=== PATIENT | female | born 1975 | race Caucasian/White ===

== ENCOUNTER → 2017-08-01 | Outpatient (CLI) | payer OTHER ==
--- NOTE | 2017-08-01 16:12 | XR ---
Lumbar spine HISTORY: Trauma and pain 3 views of the lumbar spine Lumbar vertebral bodies show preserved height, alignment, and bone mineralization. Vacuum present at L5-S1. There is associated loss of disc height with spondylosis. IMPRESSION: Degenerative disc disease. No acute fracture or subluxation.
== END | disposition home or self-care (01) ==
LOC: RADXRMAIN 15:20
PROVIDERS: ATTEND Family Medicine
DX: M51.36 Other intervertebral disc degeneration, lumbar region (principal)
CPT/HCPCS: 72100

== ENCOUNTER → 2017-09-02 | Outpatient (CLI) | payer OTHER | END | disposition home or self-care (01) | LOC: BARWHC3 14:53 | PROVIDERS: ATTEND Surgery | DX: Z53.9 Procedure and treatment not carried out, unspecified reason (principal) ==

== ENCOUNTER → 2019-04-15 | Outpatient (CLI) | payer BC ==
--- NOTE | 2019-04-15 18:08 | US ---
EXAMINATION TYPE: US venous doppler duplex LE RT DATE OF EXAM: 04/15/2019 5:51 PM COMPARISON: NONE CLINICAL HISTORY: M79.604 Pain in right leg. Pain in right leg since knee replacement October 14, 2018. Worse x 2 days. Patient does not take blood thinners. No hx of DVT. SIDE PERFORMED: Right TECHNIQUE: The lower extremity deep venous system is examined utilizing real time linear array sonog vonda with graded compression, doppler sonography and color-flow sonography. VESSELS IMAGED: External Iliac Vein (EIV) Common Femoral Vein Deep Femoral Vein Greater Saphenous Vein * Femoral Vein Popliteal Vein Small Saphenous Vein * Proximal Calf Veins (* superficial vessels) Right Leg: There is limited visibility of right distal femoral vein. Limited color flow and compress ion images. Large body habitus. No evidence of DVT in remaining veins imaged. IMPRESSION: No evidence of deep venous thrombosis in the right leg.
== END | disposition home or self-care (01) ==
LOC: RADUSMAIN 17:08
PROVIDERS: ATTEND Family Medicine
DX: M79.604 Pain in right leg (principal)

== ENCOUNTER → 2019-05-14 | Outpatient (CLI) | payer BC ==
--- NOTE | 2019-06-03 10:12 | EM ---
EVENT MONITOR This is a 14-day monitor. INDICATION: Palpitations. Underlying rhythm is sinus. There were episodes of sinus tachycardia noted. There are no episodes of sustained ventricular or supraventricular tachyarrhythmias. There are no episodes of more than 2 second pauses. There was one short self-limited run of paroxysmal atrial fibrillation noted. CONCLUSIONS: 1. This 14-day event monitor shows sinus rhythm with episodes of sinus tachycardia. 2. There was a short self-limited run of paroxysmal atrial fibrillation noted. MMODL / IJN: [id number] /
== END | disposition home or self-care (01) ==
LOC: RADECHMAIN 11:43
PROVIDERS: ATTEND Family Medicine
DX: R00.0 Tachycardia, unspecified (principal); I48.0 Paroxysmal atrial fibrillation
CPT/HCPCS: 93270

== ENCOUNTER → 2021-10-03 | Outpatient (CLI) | payer BC, OTHER ==
--- NOTE | 2021-10-03 19:36 | MR ---
EXAMINATION TYPE: MR shoulder LT wo con DATE OF EXAM: 10/03/2021 COMPARISON: Plain film 09/26/2021 HISTORY: Left shoulder pain and limited movement for 2 weeks due to fall. TECHNIQUE: Multiplanar, multisequence imaging of the left shoulder is performed without contrast. FINDINGS: There is motion on exam. Rotator Cuff: There is some thickening of the rotator cuff with some increased intrinsic signal, rota tor cuff is intact Acromioclavicular Joint: Arthropathy changes present. Distal acromion is downturned, there is a dista l acromial spur. Glenohumeral Joint: Intact Labrum: The labrum appears grossly intact given limitation of non-arthrogram study. Biceps Tendon: The long head of biceps is in normal location within bicipital groove, fluid signal is present along the long head of biceps tendon. Bone marrow signal: Spinal stenosis suspected in the humeral head Other: Some fluid signal present in the subacromial subdeltoid bursa. Small joint effusion. IMPRESSION: Findings consistent with tendinosis, consider impingement.
== END | disposition home or self-care (01) ==
LOC: RADMRIMAIN 18:11
PROVIDERS: ATTEND Orthopaedic Surgery
DX: M25.512 Pain in left shoulder (principal)

== ENCOUNTER 2021-10-18 10:05 | Day surgery (SDC) | payer BC, OTHER ==
--- NOTE | 2021-10-16 09:19 | P.HPOR ---
History of Present Illness H&P Date: 10/16/21 Chief Complaint: Left thumb CMC arthritis Subjective: This is a 46 year old female that presents today for initial evaluation regarding a several year history of worsening bilateral thumb CMC pain. She reports pain with pinching and grasping and opening jars. She denies any injury and states the left is more symptomatic than the right side but both are limiting her activities, she likes to drive motorcycles. She denies any paresthesias and has tried anti-inflammatories, heat and ice. Physical Examination: LUE: AIN/PIN/Radial/Ulnar/Median motor intact. Radial/Ulnar/Median SILT. 2+/4 Radial/Ulnar pulses palpated. 5/5 APB, 5/5 FDI. Negative Finkelsteins, positive CMC grind, negative Durkan's compression. RUE: AIN/PIN/Radial/Ulnar/Median motor intact. Radial/Ulnar/Median SILT. 2+/4 Radial/Ulnar pulses palpated. 5/5 APB, 5/5 FDI. Negative Finkelsteins, positive CMC grind, negative Durkan's compression. Imaging: X-Rays of the left and right hand show advanced degenerative changes located at the thumb CMC joint. Impression: 1.) B/L thumb CMC arthritis Plan: Diagnosis and treatment options were discussed with the patient. She states she is tired of dealing the the pain and weakness in both thumbs and would like to proceed with surgical intervention with thumb CMC tendon transfer arthroplasty. Risks and benefit of surgery including bleeding, infection, damage to surrounding tissue, need for further surgery,residual numbness were discussed and the patient wished to go forward with surgery. PCP clearance is requested, she would like to proceed with surgery on the left side first. CC: Kain Monge DO -Jeison Sanz DO Orthopedic Hand/Upper Extremity Surgeon Past Medical History Past Medical History: Osteoarthritis (OA) Additional Past Medical History / Comment(s): VARICOSE VEINS, STATES POSSIBLE FOOD POISONING- HAD DIARRHEA FOR LAST 7 DAYS WITH SOME NAUSEA AND VOMITING. STATES NO LONGER HAVING DIARRHEA OR NAUSEA AND VOMITING , STATES TAKING CIPRO FOR UTI AND DR NICK AWARE. History of Any Multi-Drug Resistant Organisms: None Reported Past Surgical History: Hysterectomy, Joint Replacement, Orthopedic Surgery, Tubal Ligation Additional Past Surgical History / Comment(s): TOTAL RIGHT KNEE, LEFT ANKLE AND TENDON REPAIR, RIGHT ROTATOR CUFF X2. Past Anesthesia/Blood Transfusion Reactions: Motion Sickness, Postoperative Nausea & Vomiting (PONV) Past Psychological History: Anxiety, Depression, Panic Disorder Past Alcohol Use History: None Reported Past Drug Use History: None Reported - Past Family History Mother Family Medical History: No Reported History Medications and Allergies Home Medications Medication Instructions Recorded Confirmed Type ALPRAZolam [Xanax] 0.25 mg PO DAILY PRN 12/28/14 06/13/16 History Ciprofloxacin HCl [Cipro] 500 mg PO Q12HR 06/13/16 06/13/16 History Citalopram Hydrobromide [CeleXA] 20 mg PO DAILY 06/13/16 06/13/16 History Nasal [place] -Unknown Name 1 spray EA NOSTRIL DAILY 06/13/16 History ondansetron HCL [Zofran] 8 mg PO Q8HR PRN 06/13/16 06/13/16 History Allergies Allergy/AdvReac Type Severity Reaction Status Date / Time ketorolac tromethamine Allergy Nausea & Verified 06/13/16 10:24 [From Toradol] Vomiting Penicillins Allergy Swelling Verified 06/13/16 10:25 Physical Examination Osteopathic Statement: *. No significant issues noted on an osteopathic structural exam other than those noted in the History and Physical/Consult.
[2021-10-17 10:53] VITALS: BMI 48.2
[~2021-10-18 10:05] MED LIST: DEXAMETHASONE SOD PHOSPHATE 4 MG/ML 1 ML VIAL IV ONE; HYDROmorphone 0.5 MG/0.5 ML SYRINGE IVP PRN; LACTATED RINGERS 1,000 ML IV SCH; ONDANSETRON 4 MG/2 ML VIAL IVP ONE; ceFAZolin 3 GM in SODIUM CHLORIDE 0.9% 100 ML IVPB PRN
[2021-10-18 10:50] VITALS: TEMP 97
[2021-10-18] MEDS ORDERED: MIDAZOLAM 2 MG/2 ML VIAL IVP ONE ×2 (10:53→10:56)
[2021-10-18] MEDS ORDERED: fentaNYL (PF) 50 MCG/ML 2 ML AMP IVP ONE ×2 (10:53→10:56)
--- NOTE | 2021-10-18 11:13 | P.ANPRN ---
Procedure Note - Anesthesia - Nerve Block Performed Left Supraclavicular Single Time Out Performed: Yes (t) Date of Procedure: 10/18/21 Procedure Start Time: 10:52 Procedure Stop Time: 11:01 Location of Patient: PreOp Indication: Requested by Surgeon Specifically requested for management of pain by DrPato: Jeison Sanz Sedation Type: Sedate with meaningful contact maintained Preparation: Sterile Prep Position: Supine Needle Types: Pajunk Needle Gauge: 21 Ultrasound used to visualize needle placement: Yes Ultrasound used to observe medication spread: Yes Injectate: 0.5% Ropivacaine (see comment for volume) (30 ml + 4mg Dexamethason) Blood Aspirated: No Pain Paresthesia on Injection Noted: No Resistance on Injection: Normal Image Stored and Saved: Yes Events: Uneventful and Well Tolerated
[2021-10-18] MEDS ORDERED: SCOPOLAMINE 1 MG/72 HR PATCH TRANSDERM ONE (11:22)
[2021-10-18] MEDS ORDERED: PROPOFOL 10 MG/ML 20 ML VIAL IV ONE (11:44)
[2021-10-18] MEDS ORDERED: LIDOCAINE 2% INJ 20 MG/ML (2 ML VIAL) ONE (11:44)
[2021-10-18] MEDS ORDERED: ROPIVACAINE 5 MG/ML 30 ML VIAL ONE (11:44)
[2021-10-18] MEDS ORDERED: DEXAMETHASONE SOD PHOSPHATE 4 MG/ML 1 ML VIAL ONE (11:44)
[2021-10-18] MEDS ORDERED: KETAMINE 10 MG/ML 20 ML VIAL ONE (11:44)
[2021-10-18] MEDS ORDERED: MIDAZOLAM 2 MG/2 ML VIAL ONE (11:44)
[2021-10-18 13:25] VITALS: BP 136/79; PULSE 74; RESP 20
--- NOTE | 2021-10-18 18:51 | P.OP ---
Date of Procedure: 10/18/21 Preoperative Diagnosis: Left thumb CMC arthritis Postoperative Diagnosis: Left thumb CMC arthritis Procedure(s) Performed: 1.) Left thumb CMC tendon transfer arthroplasty with trapezium resection. Implants: Arthrex 3.5mm SwiveLock suture anchor x2 Anesthesia: KERI regional Surgeon: Jeison Sanz Edge Worker #1: Go Rogers Estimated Blood Loss (ml): 5 Pathology: none sent Condition: stable Disposition: PACU Description of Procedure: This is a 46 year old female who presents today for a left thumb CMC tendon transfer arthroplasty after having failed conservative treatment for severe thumb CMC arthritis. Risks and benefits of surgery were discussed with the patient including bleeding, damage to surrounding tissue, infection, need for further surgery as well as risks of anesthesia including pulmonary embolism and even and the patient wished to proceed with surgical intervention. The patients was seen in the pre-operative area by myself. Consent and H&P were completed and updated. The correct extremity was marked in the pre-operative area by myself and all other questions were answered. Patient received a upper extremity nerve block by the department of anesthesia. He then was brought to the operating room by the department of anesthesia. They remained on the portable stretcher and a rolling hand table was brought to the side of the operative extremity. The patient was then drifted off to sleep by the department of anesthesia. A nonsterile tourniquet was then applied to the operative extremity and the left upper extremity was then prepped and draped in normal sterile fashion. Pre-operative time out was performed indicating the correct patient, procedure and laterality. All in the room agreed. Pre-operative antibiotics were given prior to skin incision. The operative extremity was the exsanguinated with an esmarch bandage and the tourniquet was inflated to 250mmHg. Longitudinal incision was made over the left thumb CMC joint with a 15 blade scalpel. Blunt dissection was taken down to subcutaneous tissues with littler scissors taking care to preserve the branches of the superficial radial nerve. Dorsal radial artery was identified proximally in the incision and protected throughout the procedure. Scalpel was then made to incise the thumb CMC joint creating full thickness flaps off of the proximal metacarpal base and trapezium, this plane was further developed with a periosteal elevator. Elevator was then utilized to identify the thumb CMC joint and scaphotrapezial joint. McGlamory elevator was then used to excise the trapezium whole. Guidewire was then introduced down to the laser line at the base of the index metacarpal through the same incision and was over drilled with gold drill guide to prepare for APL graft. Another guidewire was then inserted at the radial base of the first metacarpal near the Insertion of APL and was then over drilled with normal drill guide. A 2-3mm wide slip of APL was then harvested and incised proximally and reflected distally keeping its attachment at the base of the first metacarpal. The slip of APL was captured with a 3-0 looped fiberwire suture. A 3.5mm Arthrex SwiveLock anchor was then inserted into the base of the first metacarpal. Another 3.5mm Arthrex SwiveLock anchor was inserted into the base of the second metacarpal with the thumb in slight traction and adduction while capturing the APL graft and two strands of fibertape center across the first metacarpal base to create a sling around the base suspending the thumb metacarpal, good mynor purchase was appreciated. The thumb was successfully suspended and full ROM was achieved passively. Suture and graft ends were cut and skin was closed with several interrupted 4-0 Monocryl sutures followed by a running 4-0 Monocryl stitch. Sterile dressing consisting of mastisol and steri strips followed by 4x4s cast padding, and a thumb spica plaster splint was applied. Tourniquet was let down and the hand had brisk cap refill and normal perfusion immediately. The patient was then woken by the department of anesthesia and transferred to PACU in stable condition. Go MAGDALENO was present for the case and assisted in major portions of procedure and protection of vital neurovascular structures. Jeison Sanz D.O. Orthopedic Hand/Upper Extremity Surgeon
== END 2021-10-18 13:38 | disposition home or self-care (01) ==
LOC: OR 10:05
PROVIDERS: ATTEND Orthopaedic Surgery Hand Surgery
DX: M13.842 Other specified arthritis, left hand (principal); I10 Essential (primary) hypertension; I83.90 Asymptomatic varicose veins of unspecified lower extremity; E66.01 Morbid (severe) obesity due to excess calories; Z68.42 Body mass index [BMI] 45.0-49.9, adult; K21.9 Gastro-esophageal reflux disease without esophagitis; F41.9 Anxiety disorder, unspecified; F32.A Depression, unspecified; F41.0 Panic disorder [episodic paroxysmal anxiety]; Z90.710 Acquired absence of both cervix and uterus; Z98.51 Tubal ligation status; Z96.651 Presence of right artificial knee joint; Z98.890 Other specified postprocedural states; Z79.899 Other long term (current) drug therapy; Z88.5 Allergy status to narcotic agent; Z88.0 Allergy status to penicillin
CPT/HCPCS: 64415; 76942; 25447; C1713; J2250; J1100; J0690; J2405; J3010; J2795; J2704; J2001

== ENCOUNTER → 2021-11-16 | Outpatient (CLI) | payer BC, OTHER ==
[2021-11-16 09:14] VITALS: BP 141/89; PULSE 86; RESP 18; TEMP 98.1
--- NOTE | 2021-11-16 15:16 | P.PAINPG ---
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 Pt states her pain level is currently at 4/10 in intensity, constant, sore/achy in character and localized in the mid to lower aspect of the lumbar spine w radiation of pain L & R of midline. Pain is provoked with twisting, bending and lifting. She states she can not lift her grandchildren. Pain is palliated with PT in 2019, chiropractic treatments in the past which worsened pain, heating pad use, ice pack use, medications (Celebrex, Tylenol, Advil), topicals which irritate her skin, repositioning and rest. PMH: OA, MDD/ Anxiety, HTN, GERD PSH: Hysterectomy, Total R Knee Replacement, L Ankle Tendon Repair, R RCT x 2, Tubal Ligation SH: Negative x 3 FH: Mo- No reported history. All: See list Meds: See list REVIEW OF ORGAN SYSTEMS: CONSTITUTIONAL: No fevers or chills. No recent weight loss. NEUROLOGICAL: + numbness and tingling along the distal extremities. No seizure disorders or headaches. MUSCULOSKELETAL: + pain PSYCHIATRIC: Denies current depression or suicidal thoughts. Physical Examinations : Constitutional : Cooperative , not in acute distress . Neurologic : Cranial nerve II to XII intact. No focal neurological deficits. Psychiatric : alert & oriented x 3. Matching mood & appropriate affect. Judgment & insight intact. Musculoskeletal : Cervical Spine Motor strength in the deltoid and biceps: Normal right side. Normal Left side Motor strength biceps and the wrist extensors: Normal right side . Normal left side Motor strength in the triceps muscle: Normal right side. Normal left side Deep tendon reflexes: Normal at the b iceps. Normal at Brachioradialis. Normal at triceps Vertebral body tenderness to deep palpation over Cervical facet loading test: positive bilaterally Spurling test: positive bilaterally Neck distraction test: positive bilaterally Dat sign: positive bilaterally Lumbar spine Motor strength lower extremities ,thigh and legs 5/5 Right side , 5/5 Left side Deep tendon reflexes : Normal Knee Jerk. Normal Ankle Jerk Vertebral body tenderness over L3, L4 Lumbar facet Loading Test: positive Right / positive Left Range of motion of the lumbar spine Flexion 30 degrees, extension 10 degrees Straight Leg Raise test: Left/ Right positive at degree Alka test: positive right / positive left. Severe tenderness over the Sacroiliac joint on the Right / Left sides Gaenslen test: positive bilaterally Seated flexion test: positive bilaterally. Sacral spine : Severe tenderness over the Sacroiliac joint: right side / left side Range of motion: Flexion of the lumbar spine <60 degrees Range of motion: Extension of the lumbar spine <20 degrees Gaenslen's Test positive Adam's Test positive Alka test: positive right side / left side Thigh Thrust Test Sacral Thrust Test Imaging: MRI without contrast of the lumbar spine from 10/24/21 reviewed Assessment/ Plan : Lumbar DDD, Lumbar stenosis Recommendation of LESI L3-L4. May need a series of injections, up to 3 within a 6 mo period, for optimal pain relief. Risks, benefits of procedure discussed and patient verbalized understanding. Denies aspirin or anti- coagulant use or medical history of diabetes. Protocol for discontinuation/ continuation of medications kristin procedure discussed. All questions answered. I have spent greater than 30 minutes on patient care today. Dr Phelps was available by phone for the evaluation of this patient. The time was used to review the medical records including relevant urine studies and Prescription history (MAPs), review of the available imaging, evaluation and examination of the patient, coordination of care with the medical staff and if applicable referring physicians, as well as creation of the medical record PQRS Narrative: Smoking Status Never smoker Home Medications: Ambulatory Orders Cetirizine HCl [Zyrtec] 10 mg PO DAILY 10/17/21 Metoprolol Tartrate [Lopressor] 25 mg PO BID 10/17/21 Omeprazole 40 mg PO DAILY 10/17/21 Pregabalin [Lyrica] 75 mg PO BID 10/17/21 busPIRone HCL [Buspar] 30 mg PO BID 10/17/21 hydrOXYzine HCL [Hydroxyzine HCl] 25 mg PO BID 10/17/21 HYDROcodone/APAP 5-325MG [[place] 5-325] 1 tab PO Q6HR PRN 3 Days #24 tab 10/18/21 Controlled Substance Measures - Controlled Substance Measures Is patient prescribed a controlled substance at discharge?: No
== END ==
LOC: PNWHC3 08:31
PROVIDERS: ATTEND Specialist
DX: M51.16 Intervertebral disc disorders with radiculopathy, lumbar region (principal); M48.062 Spinal stenosis, lumbar region with neurogenic claudication; M19.90 Unspecified osteoarthritis, unspecified site; F32.9 Major depressive disorder, single episode, unspecified; F41.9 Anxiety disorder, unspecified; I10 Essential (primary) hypertension; Z88.0 Allergy status to penicillin; Z88.6 Allergy status to analgesic agent
CPT/HCPCS: 99211

== ENCOUNTER 2022-02-14 07:27 | Day surgery (SDC) | payer BC, OTHER ==
[2022-02-12 11:54] VITALS: BMI 48.2
--- NOTE | 2022-02-13 19:28 | P.HPOR ---
History of Present Illness H&P Date: 02/13/22 Chief Complaint: Right thumb CMC arthritis Subjective: This is a 46 year old female that presents today for a post-operative visit after undergoing left thumb tendon transfer arthroplasty on 10/18/21. She is doing well and has no pain in the left thumb now 2.5 months out from surgery. She states she is back to riding her motorcycle and would like to schedule her right thumb CMC surgery. Physical Examination: LUE: AIN/PIN/Radial/Ulnar/Median motor intact. Radial/Ulnar/Median SILT. 2+/4 Radial/Ulnar pulses palpated. Incision well healed. Negative CMC grind. Impression: 1.) S/P Left thumb CMC tendon transfer arthroplasty 2.) Right thumb CMC arthritis Plan: Diagnosis and treatment options and were discussed with the patient. She is doing well and feeling strong enough to proceed with the right thumb CMC tendon transfer arthroplasty surgery. She may continue to use the left hand as tolerated and will be scheduled for surgery in the near future for her right thumb. Risks and benefits of surgery including bleeding, infection, damage to surrounding tissue, need for further surgery, residual numbness were discussed and the patient wished to go forward with surgery -Jeison Sanz DO Orthopedic Hand/Upper Extremity Surgeon Past Medical History Past Medical History: GERD/Reflux, Hypertension, Osteoarthritis (OA) Additional Past Medical History / Comment(s): VARICOSE VEINS History of Any Multi-Drug Resistant Organisms: None Reported Past Surgical History: Hysterectomy, Joint Replacement, Orthopedic Surgery, Tubal Ligation Additional Past Surgical History / Comment(s): TOTAL RIGHT KNEE, LEFT ANKLE AND TENDON REPAIR, RIGHT ROTATOR CUFF X2, TOTAL REVISION LEFT KNEE, PAIN CLINIC PROCEDURES, COLONOSCOPY Past Anesthesia/Blood Transfusion Reactions: Motion Sickness, Postoperative Na usea & Vomiting (PONV) Smoking Status: Never smoker - Past Family History Mother Family Medical History: No Reported History Medications and Allergies Home Medications Medication Instructions Recorded Confirmed Type Cetirizine HCl [Zyrtec] 10 mg PO DAILY 10/17/21 02/12/22 History Metoprolol Tartrate [Lopressor] 25 mg PO BID 10/17/21 02/12/22 History Omeprazole 40 mg PO DAILY 10/17/21 02/12/22 History Pregabalin [Lyrica] 75 mg PO BID 10/17/21 02/12/22 History busPIRone HCL [Buspar] 30 mg PO BID 10/17/21 02/12/22 History hydrOXYzine HCL [Hydroxyzine HCl] 25 mg PO BID 10/17/21 02/12/22 History Acetaminophen [Tylenol Extra 1,000 mg PO TID 01/08/22 02/12/22 History Strength] Allergies Allergy/AdvReac Type Severity Reaction Status Date / Time ketorolac tromethamine Allergy Nausea & Verified 02/12/22 11:39 [From Toradol] Vomiting Penicillins Allergy Swelling Verified 02/12/22 11:39 Physical Examination Osteopathic Statement: *. No significant issues noted on an osteopathic structural exam other than those noted in the History and Physical/Consult.
[~2022-02-14 07:27] MED LIST changes: +LIDOCAINE 1% (10MG/ML) FOR IV START INTRADERMA PRN; +MIDAZOLAM 2 MG/2 ML VIAL IV PRN
[2022-02-14 08:16] VITALS: RESP 16; TEMP 97
[2022-02-14] MEDS ORDERED: MIDAZOLAM 2 MG/2 ML VIAL IVP ONE (08:45)
[2022-02-14] MEDS ORDERED: ROPIVACAINE 5 MG/ML 30 ML VIAL ONE (09:03)
[2022-02-14] MEDS ORDERED: KETAMINE 10 MG/ML 20 ML VIAL ONE (09:03)
[2022-02-14] MEDS ORDERED: MIDAZOLAM 2 MG/2 ML VIAL ONE (09:03)
[2022-02-14] MEDS ORDERED: fentaNYL (PF) 50 MCG/ML 2 ML AMP ONE (09:03)
[2022-02-14] MEDS ORDERED: PROPOFOL 10 MG/ML 20 ML VIAL IV ONE (09:03)
[2022-02-14] MEDS ORDERED: SUCCINYLCHOLINE CHLORIDE 200 MG/10 ML VIAL IV ONE (09:03)
[2022-02-14] MEDS ORDERED: LIDOCAINE 2% INJ 20 MG/ML (2 ML VIAL) ONE (09:03)
[2022-02-14] MEDS ORDERED: DEXAMETHASONE SOD PHOSPHATE 4 MG/ML 1 ML VIAL ONE (09:03)
--- NOTE | 2022-02-14 10:28 | P.OP ---
Date of Procedure: 02/14/22 Preoperative Diagnosis: 1.) Right thumb CMC arthritis Postoperative Diagnosis: 1.) Right thumb CMC arthritis Procedure(s) Performed: 1.) Right thumb basilar joint arthroplasty Implants: Arthrex 3.5 Swivel Lock suture anchors x2 Anesthesia: regional Surgeon: Jeison Sanz Estimated Blood Loss (ml): 5 Pathology: none sent Condition: stable Disposition: PACU Description of Procedure: This is a 47 year old female who presents today for a thumb CMC basal joint arthroplasty after having failed conservative treatment for severe thumb CMC arthritis. Risks and benefits of surgery were discussed with the patient including bleeding, damage to surrounding tissue, infection, need for further surgery as well as risks of anesthesia including pulmonary embolism and even and the patient wished to proceed with surgical intervention. The patients was seen in the pre-operative area by myself. Consent and H&P were completed and updated. The correct extremity was marked in the pre-operative area by myself and all other questions were answered. Patient received a upper extremity nerve block by the department of anesthesia. He then was brought to the operating room by the department of anesthesia. They remained on the portable stretcher and a rolling hand table was brought to the side of the operative extremity. The patient was then drifted off to sleep by the department of anesthesia. A nonsterile tourniquet was then applied to the operative extremity and the right upper extremity was then prepped and draped in normal sterile fashion. Pre-operative time out was performed indicating the correct patient, procedure and laterality. All in the room agreed. Pre-operative antibiotics were given prior to skin incision. The operative extremity was the exsanguinated with an esmarch bandage and the tourniquet was inflated to 250mmHg. Longitudinal incision was made over the left thumb CMC joint with a 15 blade scalpel. Blunt dissection was taken down to subcutaneous tissues with littler scissors taking care to preserve the branches of the superficial radial nerve. Dorsal radial artery was identified proximally in the incision and protected throughout the procedure. Scalpel was then made to incise the thumb CMC joint creating full thickness flaps off of the proximal metacarpal base and trapezium, this plane was further developed with a periosteal elevator. Elevator was then utilized to identify the thumb CMC joint and scaphotrapezial joint. McGlamory elevator was then used to excise the trapezium whole. Guidewire was then introduced down to the laser line at the base of the first metacarpal through the same incision and was over drilled. Another guidewire was then inserted at the radial base of the first metacarpal near the Insertion of APL and was then over drilled with normal drill guide. A 3.5mm Arthrex SwiveLock anchor was then inserted into the base of the first metacarpal. While holding the thumb in slight traction and full adduction, another 3.5mm Arthrex SwiveLock anchor was inserted into the base of the second metacarpal and the two strands of fibertape were centered across the first metacarpal base to create a sling around the base suspending the thumb metacarpal, good mynor purchase was appreciated. The thumb was successfully suspended and full ROM was achieved passively. Suture ends were cut and skin was closed with several interrupted 4-0 Monocryl sutures followed by a running 4-0 Monocryl stitch. Sterile dressing consisting of mastisol and steri strips followed by 4x4s cast padding, and a thumb spica plaster splint was applied. Tourniquet was let down and the hand had brisk cap refill and normal perfusion immediately. The patient was then woken by the department of anesthesia and transferred to PACU in stable condition. Jeison Sanz D.O. Orthopedic Hand/Upper Extremity Surgeon
[2022-02-14 11:43] VITALS: BP 143/85; PULSE 81
--- NOTE | 2022-02-15 18:48 | P.ANPRN ---
Procedure Note - Anesthesia - Nerve Block Performed Right Supraclavicular Single Time Out Performed: Yes Date of Procedure: 02/14/22 Procedure Start Time: 08:44 Procedure Stop Time: 08:49 Location of Patient: PreOp Indication: Acute Post-Operative Pain, Requested by Surgeon Sedation Type: Sedate with meaningful contact maintained Preparation: Sterile Prep Position: Supine Needle Types: Pajunk Needle Gauge: 21 Ultrasound used to visualize needle placement: Yes Ultrasound used to observe medication spread: Yes Blood Aspirated: No Pain Paresthesia on Injection Noted: No Resistance on Injection: Normal Image Stored and Saved: Yes Events: Uneventful and Well Tolerated (ropi .5% 20c plus demethasone 4mg)
== END 2022-02-14 11:54 | disposition home or self-care (01) ==
LOC: OR 07:27
PROVIDERS: ATTEND Orthopaedic Surgery Hand Surgery
DX: M18.11 Unilateral primary osteoarthritis of first carpometacarpal joint, right hand (principal); K21.9 Gastro-esophageal reflux disease without esophagitis; I10 Essential (primary) hypertension; Z96.692 Finger-joint replacement of left hand; Z86.718 Personal history of other venous thrombosis and embolism; Z98.51 Tubal ligation status; Z96.651 Presence of right artificial knee joint; Z90.710 Acquired absence of both cervix and uterus; Z98.890 Other specified postprocedural states; Z79.899 Other long term (current) drug therapy; Z88.6 Allergy status to analgesic agent; Z88.0 Allergy status to penicillin
CPT/HCPCS: 25447; 64415 ×2; 76942 ×2; C1713; J2250; J1100; J0690; J2405

== ENCOUNTER → 2022-03-05 | Outpatient (CLI) | payer BC, OTHER ==
[2022-03-05 08:38] VITALS: BP 138/80; PULSE 77; RESP 18; TEMP 98.1
--- NOTE | 2022-03-05 15:35 | P.PAINPG ---
PQRS Measure Charge Sheet Comment: A 47 yr old female with a history of severe and chronic low back pain secondary to lumbar DDD and spondylosis with facet arthropathy without myelopathy presents today for evaluation s/p JOSSELYN L3-L4. Pt states she experienced 0 % pain relief s/p procedure. Pain level is at 10/10 in intensity w bending, rotating or lifting, constant, localized in the L lower lumbar spine where it meets the tailbone, sharp in character w shooting towards the L hip. Pain is alleviated with medications, injections in the past, ice, heat, PT years ago, home exercise regimen, massage at home, repositioning and rest. Interventional pain procedures completed include JOSSELYN L3-L4 Patient is currently on [place], Flexeril, Tylenol Advil Patient denies any side effects of the medication(s), denies excessive drowsiness or sleepiness, denies suicidal ideation and reports that the current pain medication is helping to control the pain and improve activities of daily living. Patient denies any motor or sensory deficits. Patient denies any fever or night sweats, denies any change in the bowel movements or urination. Physical Examination: -Constitutional: Cooperative. Not in acute distress . - Neurologic: Cranial nerve II to XII intact. No focal neurological deficits. - Psychatric: Alert & oriented x 3. Matching mood & appropriate affect. Judgment and insight intact. - Musculoskeletal: Cervical spine: Muscle bulk/ tone/ strength in the bilateral upper extremities normal Vertebral body tenderness to palpation over Spurling test positive Distraction test positive Facet loading test positive Thoracic spine Muscle bulk / tone/ strength in the bilateral paraspinal muscles normal Vertebral body tender to palpation over Facet loading test positive Lumbar spine: Motor bulk/ tone/ strength lower extremities , thigh and legs : 5/5 Deep tendon reflexes : Normal Knee Jerk. Normal Ankle Jerk . Vertebral body tenderness to palpation over L5 Lumbar Facet Loading Test positive Straight Leg Raise: positive at 30 degrees right side/ left side Gaenslen's Test positive Sacral spine : Severe tenderness over the Sacroiliac joint: right side / left side Range of motion: Flexion of the lumbar spine <60 degrees Range of motion: Extension of the lumbar spine <20 degrees Gaenslen's Test positive Alka test: positive right side / left side Thigh Thrust Test Sacral Thrust Test Assessment and plan: Chronic low back pain secondary to lumbar degenerative disc disease, spondylosis with facet arthropathy without myelopathy Recommendation of L TFESI L5-S1. May need a series of injections, up to 4 within a 12 mo peirod, for optimal pain relief. Risks, benefits of procedure discussed and pt verbalized understanding. Admits to anticoagulant use or medical history of diabetes. Protocol for discontinuation/ continuation of medications kristin procedure discussed. All patient questions answered I have spent less than 30 minutes on patient care today. Dr Phelps was available by phone for the evaluation of this patient. The time was used to review the medical records including relevant urine studies and Prescription history (MAPs), review of the available imaging, evaluation and examination of the patient, coordination of care with the medical staff and if applicable referring physicians, as well as creation of the medical record PQRS Narrative: Smoking Status Never smoker Hx Alcohol Use (MH) No Home Medications: Ambulatory Orders Cetirizine HCl [Zyrtec] 10 mg PO DAILY 10/17/21 Metoprolol Tartrate [Lopressor] 25 mg PO BID 10/17/21 Omeprazole 40 mg PO DAILY 10/17/21 Pregabalin [Lyrica] 75 mg PO BID 10/17/21 busPIRone HCL [Buspar] 30 mg PO BID 10/17/21 hydrOXYzine HCL [Hydroxyzine HCl] 25 mg PO BID 10/17/21 Acetaminophen [Tylenol Extra Strength] 1,000 mg PO TID 01/08/22 HYDROcodone/APAP 5-325MG [[place] 5-325] 1 tab PO Q6HR PRN 3 Days #24 tab 02/14/22 Controlled Substance Measures - Controlled Substance Measures Is patient prescribed a controlled substance at discharge?: No
== END ==
LOC: PNWHC3 08:17
PROVIDERS: ATTEND Specialist
DX: M47.816 Spondylosis without myelopathy or radiculopathy, lumbar region (principal); M51.36 Other intervertebral disc degeneration, lumbar region; G89.29 Other chronic pain; Z88.8 Allergy status to other drugs, medicaments and biological substances; Z88.0 Allergy status to penicillin
CPT/HCPCS: 99211

== ENCOUNTER 2022-04-24 07:40 | Day surgery (SDC) | payer BC, OTHER ==
[2022-04-20 10:24] VITALS: BMI 44.9
[~2022-04-24 07:40] MED LIST changes: -DEXAMETHASONE SOD PHOSPHATE 4 MG/ML 1 ML VIAL IV ONE; -HYDROmorphone 0.5 MG/0.5 ML SYRINGE IVP PRN; -LIDOCAINE 1% (10MG/ML) FOR IV START INTRADERMA PRN; -MIDAZOLAM 2 MG/2 ML VIAL IV PRN; -ONDANSETRON 4 MG/2 ML VIAL IVP ONE; -ceFAZolin 3 GM in SODIUM CHLORIDE 0.9% 100 ML IVPB PRN
[2022-04-24] MEDS ORDERED: LIDOCAINE 1% (10MG/ML) FOR IV START INTRADERMA ONE (08:28)
[2022-04-24 08:29] VITALS: TEMP 96.9
[2022-04-24] MEDS ORDERED: IOPAMIDOL M200 10 ML VIAL ONE (08:31)
[2022-04-24] MEDS ORDERED: fentaNYL (PF) 50 MCG/ML 2 ML AMP ONE (08:31)
[2022-04-24] MEDS ORDERED: MIDAZOLAM 2 MG/2 ML VIAL ONE (08:31)
[2022-04-24] MEDS ORDERED: methylPREDNISolone ACETATE 80 MG/ML 1 ML VIAL ONE (08:31)
--- NOTE | 2022-04-24 08:45 | P.PCN ---
Date of Procedure: 04/24/22 Procedure(s) Performed: PREOPERATIVE DIAGNOSIS: 1-Lumbar radiculopathy . 2-lumbar degenerative disc disease. 3-lumbar spondylosis with lumbar facet arthropathy POSTOPERATIVE DIAGNOSIS: Same as preoperative diagnoses. PROCEDURE 1. Transforaminal epidural steroid injection under fluoroscopic guidance at left L5-S1 level. (Fluoroscopy images stored on file in the radiology Department ) 2. Lumbar epidurogram . ANESTHESIA: Local with 1% lidocaine 3 ml , moderate sedation with intravenous Versed 2 mg and fentanyle 100 micrograms. Sedation start time : 08:33 . Sedation. stop time : 08:42 . EBL: Minimal PROCEDURE INDICATION: The patient with low back pain and radiculopathy symptoms unresponsive to conservative treatment. PROCEDURE DESCRIPTION / TECHNIQUE: The patient was seen and identified in the preoperative area. Risks, benefits, complications, and alternatives were discussed with the patient. The patient agreed to proceed with the procedure and signed the consent. IV was started, and vital signs were stable. Patient was taken to the OR and time out was completed. The patient was placed in the prone position on procedure table and a pillow was placed under the abdomen to reduce lumbar lordosis. The lumbosacral area was prepped and draped in the usual sterile fashion. Critical pause was taken. Vital signs were closely monitored during the procedure. Conscious sedation was used during the procedure to decrease patient s anxiety. Using oblique fluoroscopy, the chin of the `SweetieAndrea dog at Left L5-S1 level was identified, and the skin and deeper tissues just below was localized with 1% lidocaine. Subsequently, a 22-gauge 5-inch spinal needle was advanced under a tunneled view fluoroscopic guidance just underneath the chin of the `Saundray dog at the left L5-S1 Under lateral fluoroscopy, the needle was then advanced to the posterior border of the interforaminal space. After negative aspiration of CSF and blood and with no paresthesias, 1 mL Isovue 200 contrast dye was injected excellent epidurogram and outlining of the nerve root Subsequently, 3 mL of block solution containing 80 mg Depo-Medrol and 2 mL of 0.9% normal saline PF was injected. Needle was removed. At the end of the procedure, skin was cleansed, and bandages were applied. COMPLICATIONS:none DISPOSITION / PLANS: The patient was placed in a supine position and transferred to the recovery area in a stable condition for observation. There was no evidence of lower extremity motor or sensory deficit after the procedure. Patient was discharged from the recovery room after meeting discharge criteria. Home discharge instructions were given to the patient by the staff. The patient was reexamined prior to discharge.
[2022-04-24] MEDS ORDERED: IV FLUID CONTINUATION 700 ML IV ONE (08:50)
[2022-04-24 08:53] VITALS: RESP 18
[2022-04-24 09:06] VITALS: BP 125/82; PULSE 71
--- NOTE | 2022-04-24 09:09 | FL ---
EXAMINATION TYPE: FL guided pain mgmt statistic DATE OF EXAM: 04/24/2022 CLINICAL HISTORY: Low back pain. TECHNIQUE: Fluoroscopy. COMPARISON: None. FINDINGS: Fluoroscopic guidance was provided during pain relief procedure performed by Dr. Phelps . A total of 5 seconds of fluoroscopic time was utilized during the procedure and 1 spot images are acquired. Single limits acquired shows needle localization at eccentric L5 level with contrast injec tion. IMPRESSION: As Above.
== END 2022-04-24 09:19 | disposition home or self-care (01) ==
LOC: ORPAIN 07:40
PROVIDERS: ATTEND Specialist
DX: M51.16 Intervertebral disc disorders with radiculopathy, lumbar region (principal); M47.26 Other spondylosis with radiculopathy, lumbar region; Z88.0 Allergy status to penicillin; Z88.1 Allergy status to other antibiotic agents; Z88.5 Allergy status to narcotic agent
CPT/HCPCS: 99152; 64483; J2250; J1040; J3010; Q9966

== ENCOUNTER → 2022-07-02 | Outpatient (CLI) | payer BC, OTHER ==
--- NOTE | 2022-07-03 07:04 | MR ---
EXAMINATION TYPE: MR lumbar spine wo con DATE OF EXAM: 07/02/2022 COMPARISON: Outside MRI lumbar spine July 18, 2021 HISTORY: NUMBNESS OF BILAT LEGS, PAIN LOW BACK INTO LEFT SIDE TECHNIQUE: Multiplanar, multisequence imaging of the lumbar spine is performed without IV contrast. FINDINGS: Sagittal images of the lumbar spine show vertebral body height to remain satisfactory. Stab le subtle grade 1 retrolisthesis L5 on S1. Multilevel disc desiccation L3-L4 through the L5-S1 levels redemonstrated. Mild disc space narrowing L5-S1 level redemonstrated. The conus medullaris remains normal in position and signal ending mid L1 level. The bone marrow signal intensity remains within n ormal limits. Small osseous hemangioma involving the posterior-inferior L2 vertebra sagittal image 7. Axial images show T12-L1 and L1-L2 levels to appear within normal limits. Axial images at L2-L3 level redemonstrate mild broad disc bulge with tiny central disc protrusion mil dly effacing anterior thecal sac. Patent bilateral neural foramina. No significant change from prior. Axial images at L3-L4 level redemonstrate mild broad disc bulge minimally effacing the anterior theca l sac. Axial images at L4-L5 level show mild broad disc bulge and mild facet arthropathy bilaterally. Spinal canal is preserved. Bilateral neural foramina are patent. Axial images at L5-S1 level show mild/moderate left greater than right facet arthropathy. There is mi ld left broad-based paracentral disc protrusion. Spinal canal is preserved. There is moderate left an d mild right-sided neural foraminal narrowing. No significant change from prior. Paraspinal muscle bulk is maintained. IMPRESSION: Multilevel degenerative change in the lumbar spine as detailed above. No significant red ge from recent outside MRI.
== END | disposition home or self-care (01) ==
LOC: RADMRIMAIN 10:53
PROVIDERS: ATTEND Nurse Practitioner Family
DX: M47.26 Other spondylosis with radiculopathy, lumbar region (principal); M51.16 Intervertebral disc disorders with radiculopathy, lumbar region
CPT/HCPCS: 72148

== ENCOUNTER → 2022-08-02 | Outpatient (CLI) | payer BC, OTHER ==
[2022-08-02 13:48] VITALS: BP 137/84; PULSE 77; RESP 18; TEMP 98.1
--- NOTE | 2022-08-02 14:57 | P.PAINPG ---
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 Pt states she experienced 100% pain relief x 3 days s/p procedure. Pain level is provoked at 9 /10 in intensity, constant, localized in the lumbar spine, dull in character w shooting towards the BLEs. Pain is provoked by standing, walking for periods of 20 minutes or more. Pain is alleviated with medications (Tylenol, Advil), heat, ice, PT 3 years ago which provoked pain, sitting, repositioning and rest. Interventional pain procedures completed include L TFESI L5-S1x1, JOSSELYN L4-5 x1 Patient is currently on Tyl, Advil Patient denies any side effects of the medication(s), denies excessive drowsiness or sleepiness, denies suicidal ideation and reports that the current pain medication is helping to control the pain and improve activities of daily living. Patient denies any motor or sensory deficits. Patient denies any fever or night sweats, denies any change in the bowel movements or urination. Physical Examination: -Constitutional: Cooperative. Not in acute distress . - Neurologic: Cranial nerve II to XII intact. No focal neurological deficits. - Psychatric: Alert & oriented x 3. Matching mood & appropriate affect. Judgment and insight intact. - Musculoskeletal: Cervical spine: Muscle bulk/ tone/ strength in the bilateral upper extremities normal Vertebral body tenderness to palpation over Spurling test positive Distraction test positive Facet loading test positive TTP Thoracic spine Muscle bulk / tone/ strength in the bilateral paraspinal muscles normal Vertebral body tender to palpation over Facet loading test positive TTP Lumbar spine: Motor bulk/ tone/ strength lower extremities , thigh and legs : 5/5 Deep tendon reflexes : Normal Knee Jerk. Normal Ankle Jerk . Vertebral body tenderness to palpation over Lumbar Facet Loading Test positive over BL L4-L5, L5-S1 facets Poor 2 pt discrimination over BL L4-S1 paraspinal muscles Straight Leg Raise: positive at 30 degrees right side/ left side Gaenslen's Test positive Sacral spine : Severe tenderness over the Sacroiliac joint: right side / left side Range of motion: Flexion of the lumbar spine <60 degrees Range of motion: Extension of the lumbar spine <20 degrees Gaenslen's Test positive right side / left side Alka test: positive right side / left side Thigh Thrust Test positive right side / left side Sacral Thrust Test positive right side / left side Assessment and plan: Chronic LBP secondary to lumbar DDD, spondylosis with facet arthropathy without myelopathy Recommendation of BL MBB L4-L5, L5-S1 #1. May need a series of injections, up until RFA, for optimal pain relief. Risks, benefits of procedure discussed and pt verbalized understanding. Admits to anticoagulant use or medical history of diabetes. Protocol for discontinuation/ continuation of medications kristin procedure discussed. All questions answered. I have spent less than 30 minutes on patient care today. Dr Phelps was available by phone for the evaluation of this patient. The time was used to review the medical records including relevant urine studies and Prescription history (MAPs), review of the available imaging, evaluation and examination of the patient, coordination of care with the medical staff and if applicable referring physicians, as well as creation of the medical record PQRS Narrative: Smoking Status Never smoker Hx Alcohol Use (MH) No Home Medications: Ambulatory Orders Cetirizine HCl [Zyrtec] 10 mg PO DAILY 10/17/21 Metoprolol Tartrate [Lopressor] 25 mg PO BID 10/17/21 Omeprazole 40 mg PO DAILY 10/17/21 Pregabalin [Lyrica] 75 mg PO BID 10/17/21 busPIRone HCL [Buspar] 30 mg PO BID 10/17/21 hydrOXYzine HCL [Hydroxyzine HCl] 25 mg PO BID 10/17/21 Acetaminophen [Tylenol Extra Strength] 1,000 mg PO TID PRN 01/08/22 HYDROcodone/APAP 7.5-325MG [[place] 7.5] 1 each PO Q6HR PRN #28 tab 05/03/22 Controlled Substance Measures - Controlled Substance Measures Is patient prescribed a controlled substance at discharge?: No
== END ==
LOC: PNWHC3 08:59
PROVIDERS: ATTEND Specialist
DX: M51.16 Intervertebral disc disorders with radiculopathy, lumbar region (principal); M48.061 Spinal stenosis, lumbar region without neurogenic claudication; M47.26 Other spondylosis with radiculopathy, lumbar region; G89.29 Other chronic pain; Z79.899 Other long term (current) drug therapy; Z88.1 Allergy status to other antibiotic agents; Z88.0 Allergy status to penicillin
CPT/HCPCS: 99211

== ENCOUNTER 2022-09-07 08:11 | Day surgery (SDC) | payer BC, OTHER ==
[2022-09-06 08:24] VITALS: BMI 49.0
[~2022-09-07 08:11] MED LIST changes: +LIDOCAINE 1% (10MG/ML) FOR IV START INTRADERMA PRN
[2022-09-07 08:22] VITALS: TEMP 97
[2022-09-07] MEDS ORDERED: ROPIVACAINE 5 MG/ML 20 ML AMPULE ONE (09:08)
[2022-09-07] MEDS ORDERED: MIDAZOLAM 2 MG/2 ML VIAL ONE (09:08)
[2022-09-07] MEDS ORDERED: fentaNYL (PF) 50 MCG/ML 2 ML AMP ONE (09:08)
[2022-09-07] MEDS ORDERED: methylPREDNISolone ACETATE 40 MG/ML 1 ML VIAL ONE (09:08)
--- NOTE | 2022-09-07 09:29 | P.PCN ---
Date of Procedure: 09/07/22 Procedure(s) Performed: PREOPERATIVE DIAGNOSIS : 1- Lumbar spondylosis with Facet Arthropathy without myelopathy . 2- Lumber degenerative disc disease POSTOPERATIVE DIAGNOSIS: 1- Lumbar spondylosis with Facet Arthropathy without myelopathy . 2- Lumber degenerative disc disease PROCEDURE: Diagnostic bilateral L3 , L4 , and L5 medial branch block under fluoroscopy guidance(fluoroscopy images available in the radiology Department ) ( To target the facet joint between Bilateral L4-5 , and L5-S1 ) ANESTHESIA:, Monitored anesthesia care as per anesthesia department. EBL: Minimal COMPLICATION: None PROCEDURE INDICATION: Chronic low back pain secondary to Facet arthropathy unresponsive to conservative treatment. PROCEDURE DESCRIPTION: the patient was seen and identified in the preop holding area , risks and benefits and possible complications of the procedure and alternative were discussed with the patient, and the patient agreed to proceed with the procedure and signed the consent and vital signs monitored during the procedure and fluoroscopy was used to maximize the benefit and accuracy of the needle placement, and sedation was given to decrease patient anxiety, patient was taken to the procedure room and placed in prone position vital signs monitored in the back prepped with chlorhexidine X3 then under strict sterile technique using a right oblique fluoroscopy ,the junction of the transverse process and the superior articulating process of the right L3 , L4 , and L5 vertebra which corresponding to the fluoroscopy image of the eye of the Andrea dog on the block side for the medial branches and subsequently , after local infiltration of skin and subcu tissuies with Ropivacaine 0.5 % , one mL at each level ,then 22-gauge 5 inches long Quincke-type needles , 3 needle was used , each one of them placed at the junction of the base of the transverse process and the superior articular process at the appropriate level, and the needle was advanced until the periosteum contacted, needle placement confirmed with AP oblique and lateral view and after appropriate needle placement confirmed, and after negative aspiration for heme and CSF and there was no paresthesia 1-1/2 mL of Ropivacaine 0.5% mixed with 20 mg Depo-Medrol , then half mL injected at each level after negative aspiration the needle subsequently removed and the same procedure repeated for the left side at left side at L3 , L4 and L5 levels. At the end of the procedure and the needles removed and a bandage applied after the skin was cleaned the cleaning solution patient taken to recovery room in stable condition and monitors in the recovery room for 20-30 minutes and discharged home in stable condition after discharge criteria met and patient will follow up with the pain clinic in 2-4 weeks
[2022-09-07] MEDS ORDERED: IV FLUID CONTINUATION 700 ML IV ONE (09:32)
--- NOTE | 2022-09-07 09:40 | FL ---
Intraoperative/procedural fluoroscopic services were provided. Total fluoroscopy time is 40.2 seconds with a total of 4 submitted images to PACS. Please see the operative/procedural note for further det ails. DAP: [id number] mGym2
[2022-09-07 09:52] VITALS: BP 123/70; PULSE 66; RESP 20
== END 2022-09-07 09:59 | disposition home or self-care (01) ==
LOC: ORPAIN 08:11
PROVIDERS: ATTEND Specialist
DX: M51.36 Other intervertebral disc degeneration, lumbar region (principal); M47.816 Spondylosis without myelopathy or radiculopathy, lumbar region; G89.29 Other chronic pain; I10 Essential (primary) hypertension; K21.9 Gastro-esophageal reflux disease without esophagitis; Z88.0 Allergy status to penicillin; Z88.6 Allergy status to analgesic agent; Z79.899 Other long term (current) drug therapy
CPT/HCPCS: 64494 ×2; 64493; 99152; J2250; J1030; J3010; J2795

== ENCOUNTER → 2022-09-27 | Outpatient (CLI) | payer BC, OTHER ==
[2022-09-27 10:18] VITALS: BP 120/78; PULSE 68; RESP 15; TEMP 97.5
--- NOTE | 2022-09-27 15:25 | P.PAINPG ---
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 Pt states she experienced 20% pain relief x 3 days s/p procedure. Pain level is provoked at 9 /10 in intensity, constant, localized in the lumbar spine, dull in character w/o shooting pain. Pain is provoked by standing, walking for periods of 20 minutes or more. Pain is alleviated with medications (Tylenol, Advil), heat, ice, PT 3 years ago which provoked pain, sitting, repositioning and rest. Oswetry Pain Score at 31. Interventional pain procedures completed include L TFESI L5-S1x1, JOSSELYN L4-5 x1, BL L3-L5 x1 Patient is currently on Tyl, Advil Patient denies any side effects of the medication(s), denies excessive drowsiness or sleepiness, denies suicidal ideation and reports that the current pain medication is helping to control the pain and improve activities of daily living. Patient denies any motor or sensory deficits. Patient denies any fever or night sweats, denies any change in the bowel movements or urination. Physical Examination: -Constitutional: Cooperative. Not in acute distress . - Neurologic: Cranial nerve II to XII intact. No focal neurological deficits. - Psychatric: Alert & oriented x 3. Matching mood & appropriate affect. Judgment and insight intact. - Musculoskeletal: Cervical spine: Muscle bulk/ tone/ strength in the bilateral upper extremities normal Vertebral body tenderness to palpation over Spurling test positive Distraction test positive Facet loading test positive TTP Thoracic spine Muscle bulk / tone/ strength in the bilateral paraspinal muscles normal Vertebral body tender to palpation over Facet loading test positive TTP Lumbar spine: Motor bulk/ tone/ strength lower extremities , thigh and legs : 5/5 Deep tendon reflexes : Normal Knee Jerk. Normal Ankle Jerk . Vertebral body tenderness to palpation over L4 Lumbar Facet Loading Test positive over BL L4-L5, L5-S1 facets Poor 2 pt discrimination over BL L4-S1 paraspinal muscles Straight Leg Raise: positive at 30 degrees right side/ left side Gaenslen's Test positive Sacral spine : Severe tenderness over the Sacroiliac joint: right side / left side Range of motion: Flexion of the lumbar spine <60 degrees Range of motion: Extension of the lumbar spine <20 degrees Gaenslen's Test positive right side / left side Alka test: positive right side / left side Thigh Thrust Test positive right side / left side Sacral Thrust Test positive right side / left side Assessment and plan: Chronic LBP secondary to lumbar DDD, spondylosis with facet arthropathy without myelopathy Recommendation of Behavioral [facility]al Eval re: SCS Trial Dx G89.4, M54.16. Video viewed. May need a series of injections, up until RFA, for optimal pain relief. Risks, benefits of procedure discussed and pt verbalized understanding. Admits to anticoagulant use or medical history of diabetes. Protocol for discontinuation/ continuation of medications kristin procedure discussed. All quest ions answered. I have spent less than 30 minutes on patient care today. Dr Phelps was available by phone for the evaluation of this patient. The time was used to review the medical records including relevant urine studies and Prescription history (MAPs), review of the available imaging, evaluation and examination of the patient, coordination of care with the medical staff and if applicable refe rring physicians, as well as creation of the medical record PQRS Narrative: Smoking Status Never smoker Hx Alcohol Use (MH) No Home Medications: Ambulatory Orders Cetirizine HCl [Zyrtec] 10 mg PO DAILY 10/17/21 Metoprolol Tartrate [Lopressor] 25 mg PO BID 10/17/21 Omeprazole 40 mg PO DAILY 10/17/21 Pregabalin [Lyrica] 75 mg PO BID 10/17/21 busPIRone HCL [Buspar] 30 mg PO BID 10/17/21 hydrOXYzine HCL [Hydroxyzine HCl] 25 mg PO BID 10/17/21 Acetaminophen [Tylenol Extra Strength] 1,000 mg PO TID PRN 01/08/22 HYDROcodone/APAP 7.5-325MG [[place] 7.5] 1 each PO Q6HR PRN #28 tab 05/03/22 Controlled Substance Measures - Controlled Substance Measures Is patient prescribed a controlled substance at discharge?: No
== END ==
LOC: PNWHC3 09:06
PROVIDERS: ATTEND Specialist
DX: M51.37 Other intervertebral disc degeneration, lumbosacral region (principal); M47.817 Spondylosis without myelopathy or radiculopathy, lumbosacral region; G89.29 Other chronic pain; M53.3 Sacrococcygeal disorders, not elsewhere classified; Z88.0 Allergy status to penicillin; Z88.6 Allergy status to analgesic agent
CPT/HCPCS: 99211

== ENCOUNTER → 2023-04-10 | Outpatient (CLI) | payer MEDICARE, OTHER | END | disposition home or self-care (01) | LOC: LABPAT 10:27 | PROVIDERS: ATTEND Orthopaedic Surgery | DX: Z01.812 Encounter for preprocedural laboratory examination (principal); M47.817 Spondylosis without myelopathy or radiculopathy, lumbosacral region; M48.061 Spinal stenosis, lumbar region without neurogenic claudication; M43.16 Spondylolisthesis, lumbar region; M54.16 Radiculopathy, lumbar region; Z22.322 Carrier or suspected carrier of Methicillin resistant Staphylococcus aureus | CPT/HCPCS: 36415; 86850; 86900; 86901; 87070 ==

== ENCOUNTER 2023-04-16 05:40 | Day surgery (SDC) | payer MEDICARE, OTHER ==
--- NOTE | 2023-04-15 09:16 | P.HPOR ---
History of Present Illness H&P Date: 04/10/23 .D:Date: 04/10/23 : 11:38am .T:Title: [facility] History and Physical Date of :[birth year] [id number]: NKDA Age: 48 year Height: 5'5" Weight: 270 lbs BMI: 44.93 kg/m2 Occupation: NA VAS: 10 IMPRESSION: It was my pleasure to have seen and examined Mis. I reviewed the patient's clinical syndrome, physical findings, and imaging studies during the appointment today. It is my impression that the patient has a diagnosis of. 1. L5-S1 herniated nucleus pulposus 2. Left lower extremity radiculopathy I outlined the natural course history without intervention and various interventional options. Spine Surgery Risk Review Ms. Yates is presenting for evaluation of low back and left lower extremity pain, left lower extremity numbness and tingling. It was my pleasure to have seen and examined Ms. Yates. In our visit today we have had a chance to go over subjective complaints, physical examination findings and treatments including the natural course history without intervention and various interventional options. The patients imaging demonstrates: Xray taken at [facility], Lumbar Multiview (AP, Lateral, Flexion, Extension) with AP pelvis; 5 views on 01/25/22: - Reviewed with the patient today. Mild multilevel degenerative changes with preserved alignment. [place] diminished disc heights. Vertebral body heights are preserved. No acute osseous abnormalities. AP Pelvis: Unremarkable MRI scan from07/08/21 of LumbarSpine: - Reviewed with the patient today. Impression: 1. multilevel degenerative changes mid to lower lumbar spine as detailed above. On physical exam, Ms. Yates demonstrates: A continued ache-like leach throughout the low back that radiates down into the left lower extremity. She notes her left leg pain is associated with numbness and tingling. She states her symptoms have progressively worsened since she was last evaluated in office on 01/11/2023. The patient states her symptoms are exacerbated by all activity. I have explained to the patient that as their condition progresses it will cause further neurological deficits and eventual paralysis. Based on the patients imaging, physical exam, and the rapid progression and disabling nature of their symptoms, at this time I recommend surgery in the form of a: L5-S1 MIS laminoforaminotomy, Left. I discussed the risk and benefits of this procedure at length with Ms. Yates. The patient agreed to considered pursuing the procedure abovementioned. Prior to surgery, she should follow up with her PCP (Cardio, ID, IM etc) for clearance. Questions were invited and answered, and the patient wishes to proceed as outlined below. Currently, I am recommendin.L5-S1 Minimally invasive laminoforaminotomy, Left (32982) 2.Review of surgical risks and benefits as well as an educational packet on the proposed surgical procedure. Risks: All surgical procedures come with inherent risks, including those related to positioning, anesthesia, intraoperative findings, and postoperative complications. It is important to understand that surgery does not come with any guarantee of a successful outcome as complications and adverse events are always possible. The patient was given a handout in office today discussing the surgical procedure and risks associated with the intervention, both of which were discussed with the patient. These risks include but are not limited to the following: * Experiencing same, different or even worse symptoms in back, neck, arms, or legs compared to before surgery. Requiring further surgery or other forms of treatment presently or at some time in the future at same or other levels of the intended spine surgery. On an extreme but fortunately relatively rare basis severe complication such as blindness, stroke, heart attack, temporary and/or permanent nerve injury, paralysis, coma, or may occur, sometimes without known explanation. Surgical complications may include but are not limited to risk of infection, fluid accumulation in the surgical dissection site, including a seroma or hematoma, that requires additional surgery, wound drainage, bleeding, new numbness or weakness, vision changes/loss, spinal fluid leakage, non-healing and/or infected incision, headaches, difficulty or inability to swallow, hoarseness, hemopneumothorax, pneumothorax, impotence, retrograde ejaculation, vaginal dryness; injury to nerves, spinal cord, blood vessels, lymphatics or other vital organs (i.e., bowel injury, injury to the great vessels); heterotopic bone formation; complications related to the hardware such as screws, rods, cages including misplaced hardware, device failure, instrumentation at the wrong spine level, hardware fracture/breakage, or hardware loosening; vertebral failure of the spinal column above or below the newly placed hardware; retained surgical instrumentations or devices and the need for further surgery. * Medical risks of the planned spine surgery include but are not limited to generalized Infections to the whole body or local areas outside of the surgical site (sepsis), heart attack, bleeding, anaphylaxis, meningitis, seizure, epilepsy, hearing loss, burn benoit, laceration of the head or other a reas of the body, bruising, hypersensitivity of the skin, bladder over distension; allergic reaction; shoulder injury related to positioning; fat, blood and air clots to other areas of the body like heart, lungs, brain; failure of internal organs such as lungs, kidneys, liver and excessive bleeding. If blood transfusions are necessary, note that transfusions may cause intolerance reactions such as anaphylaxis or other complex reactions. Despite best efforts, the results of spine surgery might not heal in terms of bone, soft tissues such as skin, fascia, ligaments, and joints. Additionally, i n order to achieve best possible results, spine surgery may be carried out beyond the initially planned levels and involve decompression, fusion including insertion of hardware at levels other than the original intended area of surgical interest change some portions of the procedure in order to ensure the best possible outcomes. With spine surgery and spinal fusion, there are different off label uses of instrumentation (devices, implants and hardware) as well as biological substances (bone morphogenic proteins, demineralized bone matrix) as well as using extra bone from allograft sources (i.e. cadaver bone) or autograft (iliac crest bone, ribs, or the spine itself). The patient has been given information about these practices and their inherent risks and benefits. [facility] is an educational center that serves as a training facility for neurosurgical and orthopedic DISABILITY MANAGER and Nursing students. Physician assistants are medically trained surgical providers who function in the outpatient, inpatient, and operating room setting under the direct supervision of the attending surgeon. [facility] has multiple operating rooms with single and overlapping rooms running daily. They currently function under the required guidelines as produced by the [facility] Finance Committee with regards to the overlapping rooms and will continue to comply with changes to this policy as they occur. The requirements include and are complied with as follows: (1) the critical portions of the overlapping rooms will not occur at the same time, (2) the attending physician will be physically present during the critical portions of the procedure and immediately available during the entire case, and (3) a back-up attending is designated should the primary attending not be immediately av ailable. The patient has had a chance to review all the listed information, has been given print outs detailing this information, and has had all his/her questions answered to their satisfaction. It was my pleasure to have seen and examined Ms. Yates. In our visit today we have had a chance to go over my understanding of our patient's current condition, the natural course history without intervention and various interventional options. Questions were invited and answered, and the patient wishes to proceed as outlined above. I have seen and examined the patient for 25 minutes and we have spent more than 50% of the time in repeat and detailed counseling about the patient's condition, its natural course history with out and as much as can be predicted with surgery and re-review of various surgical treatment options. In conclusion, Ms. Yates requested we proceed with the above suggested surgery and are willing to accept risks and limitations of the suggested surgery as nature of the disease process and our best attempts at treatment for the condition. Thank you again for allowing us to be part of your patient's care. Please don't hesitate to contact me if you have any further questions. Follow- up: Post procedure Patient Education: (Informational booklet, instructions, etc) given at today's appointment: Yes .ED:Patient Education: Y Medications Reviewed: YES In our visit today Ms. Yates and I have had a chance to go over my understanding of the patient's current condition, the natural course history without intervention and various interventional options. Questions were invited and answered, and the patient wishes to proceed as outlined above. I will be sure to keep you updated afterMs. Yates returns here for further follow-up. Thank you again for your referral. Please do not hesitate to contact me if you have any further questions. Signed and authenticated by: Dangelo Rivers [facility] Sp[facility] [address] [facility], [address] [address] This message is confidential, intended only for the named recipient(s) and may contain information that is privileged or exempt from disclosure under applicable law. If you are not the intended recipient(s), you are notified that the dissemination, distribution or copying of this information is strictly prohibited. If you received this message in error, please notify the sender then delete this message. Patient verbalizes understanding of the information discussed. The above note was initiated by Lynn Thomas, physician recording clinic assistant for Dr. Dangelo Beebe. This note has been reviewed by Dr. Beebe, who has made his personal changes and impressions for this document. CC: Kain Monge D.O. # SIGNED BY Dangelo Beebe (GOO)04/10/2023 01:50PM Past Medical History Past Medical History: Diabetes Mellitus, GERD/Reflux, Hypertension, Osteoarthritis (OA) Additional Past Medical History / Comment(s): VARICOSE VEINS, type 2 diabetes, recent cold sx. resolving History of Any Multi-Drug Resistant Organisms: None Reported Past Surgical History: Hysterectomy, Joint Replacement, Orthopedic Surgery, Tubal Ligation Additional Past Surgical History / Comment(s): TOTAL RIGHT KNEE & then revision, LEFT ANKLE AND TENDON REPAIR, RIGHT ROTATOR CUFF X2, TOTAL REVISION LEFT KNEE, LT ROTATOR CUFF REPAIR, PAIN CLINIC PROCEDURES Past Anesthesia/Blood Transfusion Reactions: Motion Sickness, Postoperative Nausea & Vomiting (PONV) Smoking Status: Never smoker - Past Family History Mother Family Medical History: No Reported History Medications and Allergies Home Medications Medication Instructions Recorded Confirmed Type Cetirizine HCl [Zyrtec] 10 mg PO DAILY 10/17/21 04/10/23 History Metoprolol Tartrate [Lopressor] 25 mg PO BID 10/17/21 04/10/23 History Omeprazole 40 mg PO DAILY 10/17/21 04/10/23 History Pregabalin [Lyrica] 10 mg PO BID 10/17/21 04/10/23 History busPIRone HCL [Buspar] 30 mg PO BID 10/17/21 04/10/23 History hydrOXYzine HCL [Hydroxyzine HCl] 50 mg PO BID PRN 10/17/21 04/10/23 History Albuterol Inhaler [Ventolin Hfa 1 - 2 puff INHALATION Q6H PRN 04/10/23 04/10/23 History Inhaler] Fluticasone Nasal [place] [Flonase 2 spray EA NOSTRIL DAILY PRN 04/10/23 04/10/23 History Nasal [place]] Meclizine [Antivert] 25 mg PO TID PRN 04/10/23 04/10/23 History Ondansetron [Zofran] 4 mg PO Q8HR PRN 04/10/23 04/10/23 History traZODone HCL [Desyrel] 50 mg PO HS 04/10/23 04/10/23 History Allergies Allergy/AdvReac Type Severity Reaction Status Date / Time ketorolac tromethamine Allergy Nausea & Verified 04/10/23 15:15 [From Toradol] Vomiting Penicillins Allergy Swelling Verified 04/10/23 15:15 Physical Examination Osteopathic Statement: *. No significant issues noted on an osteopathic structural exam other than those noted in the History and Physical/Consult.
[~2023-04-16 05:40] MED LIST changes: +ACETAMINOPHEN TAB 500 MG TAB PO PRN; +GABAPENTIN 300 MG CAP PO PRN; -LACTATED RINGERS 1,000 ML IV SCH; -LIDOCAINE 1% (10MG/ML) FOR IV START INTRADERMA PRN; +TRANEXAMIC 1,000 MG/100ML-NACL 1,000 MG in SALINE 1 100ML.BAG IVPB PRN; +ceFAZolin 3 GM in SODIUM CHLORIDE 0.9% 100 ML IVPB PRN
[2023-04-16] MEDS ORDERED: DEXAMETHASONE SOD PHOSPHATE 4 MG/ML 1 ML VIAL IV ONE (06:09)
[2023-04-16] MEDS ORDERED: LACTATED RINGERS 1,000 ML IV SCH (06:09)
[2023-04-16] MEDS ORDERED: LACTATED RINGERS 1,000 ML IV ONE ×2 (06:23)
[2023-04-16] MEDS ORDERED: SCOPOLAMINE 1 MG/72 HR PATCH TRANSDERM ONE (06:34)
[2023-04-16] MEDS: ONDANSETRON 4 MG/2 ML VIAL IVP PRN ×2 (06:35→10:04)
[2023-04-16 07:00] LABS: Glucose,Whole Blood 133 mg/dL (70-110)
[2023-04-16] MEDS ORDERED: HYDROmorphone 0.5 MG/0.5 ML SYRINGE IVP PRN (07:00)
[2023-04-16] MEDS ORDERED: GLYCOPYRROLATE 0.2 MG/ML 2 ML VIAL ONE (07:32)
[2023-04-16] MEDS ORDERED: TRANEXAMIC 1,000 MG/100ML-NACL PREMIX BAG ONE (07:32)
[2023-04-16] MEDS ORDERED: LIDOCAINE 1% INJ 10MG/ML (20 ML MDV) ONE (07:32)
[2023-04-16] MEDS ORDERED: PROPOFOL 10 MG/ML 20 ML VIAL IV ONE (07:32)
[2023-04-16] MEDS ORDERED: fentaNYL (PF) 50 MCG/ML 2 ML AMP ONE (07:32)
[2023-04-16] MEDS ORDERED: MIDAZOLAM 2 MG/2 ML VIAL ONE (07:32)
[2023-04-16] MEDS ORDERED: NEOSTIGMINE 1 MG/ML 10 ML VIAL ONE (07:32)
[2023-04-16] MEDS ORDERED: SUCCINYLCHOLINE CHLORIDE 200 MG/10 ML VIAL IV ONE (07:32)
[2023-04-16] MEDS ORDERED: KETAMINE HCL IN 0.9 % NACL 50 MG/5 ML SYRINGE ONE (07:32)
[2023-04-16] MEDS ORDERED: ROCURONIUM 10 MG/ML (5 ML VIAL) IV ONE (07:32)
--- NOTE | 2023-04-16 07:40 | P.EN ---
Was called back to pre op to re-aura patient. Was not called until 0730, making the patient already delayed to room. The reason was to aura the patient on the back and not on her hand which was the visible area for the patient, indicating that I was through pre op to see her and signed the consent. The consent obviously does not say anything about hand surgery and I spoke to the nurse at bedside and specifically told her that this was the reason for the aura on the hand as it was a visible area to indicate that I have confirmed the patient for surgery along with confirmation of the consent, which is signed by me timed and dated despite there being no lines for this on the sheet and it being policy that the consent is signed on the day by the surgeon. This was further delay of my patients care.
[2023-04-16] MEDS ORDERED: LIDOCAINE 1%-EPI 1:100,000 50 ML VIAL SQ ONE ×2 (08:09)
[2023-04-16] MEDS ORDERED: THROMBIN (BOVINE) 5,000 UNIT VIAL MISCELLANE ONE (08:22)
[2023-04-16] MEDS ORDERED: GELATIN SPONGE,ABSORB (LARGE) 1 EACH SPONGE MISCELLANE ONE (08:22)
--- NOTE | 2023-04-16 09:52 | XR ---
EXAMINATION TYPE: XR lumbar spine 2 or 3V DATE OF EXAM: 04/16/2023 COMPARISON: NONE HISTORY: Fluoroscopy time TECHNIQUE: 8 views FINDINGS: Limited intraoperative view demonstrate postsurgical changes. IMPRESSION: Intraoperative imaging
[2023-04-16 09:53] VITALS: TEMP 97.8
--- NOTE | 2023-04-16 09:54 | FL ---
EXAMINATION TYPE: FL guidance operating room DATE OF EXAM: 04/16/2023 HISTORY: Fluoroscopy time Total dose area product (DAP) in uGy*m?, mGy*cm? (or similar): 12.23 IMPRESSION: 1. Fluoroscopy time.
[2023-04-16 10:12] LABS: Glucose,Whole Blood 211 mg/dL (70-110)
[2023-04-16] MEDS ORDERED: HYDROcodone/APAP 10-325MG 1 EACH TAB ONE (11:26)
[2023-04-16 11:27] VITALS: RESP 18
[2023-04-16] MEDS ORDERED: HYDROcodone/APAP 10-325MG 1 EACH TAB PO ONE (11:27)
[2023-04-16 13:25] VITALS: BP 143/85; PULSE 81
--- NOTE | 2023-04-16 18:12 | P.OP ---
Date of Procedure: 04/16/23 Preoperative Diagnosis: M48.07 Spinal stenosis, lumbosacral region M47.26 Other spondylosis with radiculopathy, lumbar region M51.37 Other intervertebral disc degeneration, lumbosacral region M51.27 Other intervertebral disc displacement, lumbosacral region E66.01 MO Postoperative Diagnosis: M48.07 Spinal stenosis, lumbosacral region M47.26 Other spondylosis with radiculopathy, lumbar region M51.37 Other intervertebral disc degeneration, lumbosacral region M51.27 Other intervertebral disc displacement, lumbosacral region E66.01 MO Procedure(s) Performed: 75137 Laminectomy, facetectomy and foraminotomy (unilateral or bilateral with decompression of spinal cord, cauda equina and/or nerve root[s], [eg, spinal or lateral recess stenosis]), single vertebral segment; lumbar 5- Sacral 1, left CPTMOD 22 THIS CASE TOOK 75% LONGER THAN EXPECTED DUE TO CORMORBID CONDITIONS, HIGH BMI >45, EXTENT OF LUMBAR DISEASE AND HIGH TECHNICALITY OF THE CASE. minimally invasive Use of IO microscope Implants: None Anesthesia: ELISHAA Surgeon: Dangelo Beebe Landscape Architecture Teacher #1: Joy Hines (WAS PRESENT AND ASSISTED WITH ALL ASPECTS OF THE CASE FROM POSITION TO CLOSURE) Estimated Blood Loss (ml): 25 IV fluids (ml): 1,000 Urine output (ml): 0 Pathology: none sent Condition: stable Disposition: PACU Indications for Procedure: Ms. Yates is presenting for evaluation of low back and left lower extremity pain, left lower extremity numbness and tingling. It was my pleasure to have seen and examined Ms. Yates. In our visit today we have had a chance to go over subjective complaints, physical examination findings and treatments including the natural course history without intervention and various interventional options. The patients imaging demonstrates: Xray taken at [facility], Lumbar Multiview (AP, Lateral, Flexion, Extension) with AP pelvis; 5 views on 01/25/22: - Reviewed with the patient today. Mild multilevel degenerative changes with preserved alignment. [place] diminished disc heights. Vertebral body heights are preserved. No acute osseous abnormalities. AP Pelvis: Unremarkable MRI scan from07/08/21 of LumbarSpine: - Reviewed with the patient today. Impression: 1. multilevel degenerative changes mid to lower lumbar spine as detailed above. On physical exam, Ms. Yates demonstrates: A continued ache-like leach throughout the low back that radiates down into the left lower extremity. She notes her left leg pain is associated with numbness and tingling. She states her symptoms have progressively worsened since she was last evaluated in office on 01/11/2023. The patient states her symptoms are exacerbated by all activity. I have explained to the patient that as their condition progresses it will cause further neurological deficits and eventual paralysis. Based on the patients imaging, physical exam, and the rapid progression and disabling nature of their symptoms, at this time I recommend surgery in the form of a: L5-S1 MIS laminoforaminotomy, Left. I discussed the risk and benefits of this procedure at length with Ms. Yates. The patient agreed to considered pursuing the procedure abovementioned. Prior to surgery, she should follow up with her PCP (Cardio, ID, IM etc) for clearance. Questions were invited and answered, and the patient wishes to proceed as outlined below. Currently, I am recommendin.L5-S1 Minimally invasive laminoforaminotomy, Left Description of Procedure: L5-S1 left laminoforaminotomy The patient was seen and examined in the preoperative area. All preoperative protocols were followed. Informed consent was obtained, risks and benefits of the procedure were discussed at length. Risks including bleeding infection damage to the surrounding tissue and risk of reoperation were discussed with the patient. Risk of anesthesia up to and including was discussed with the patient. These are outlined in the risk review. They were willing to accept these risks and all the risks of surgery. The patient was given a weight-based dose of antibiotics in the form of 2 g Ancef. The patient was seen and evaluated by the anesthesia team who deemed them fit for surgery. The site was marked, the patient was willing to proceed with the procedure. The patient was transferred to the operative suite by the Department of anesthesia. They were then drifted off to sleep by the department anesthesia and GETA was performed. The patient tolerated this well. Ellington catheter was placed by nursing staff, a-traumatically. Once confirmation of lines and ventilation the patient was transferred to a prone Rey table very carefully. All bony prominences including wrists, elbows, axilla, chest, hips, and thighs, and feet were padded very well. Special attention was paid to the genitalia, and these were padded accordingly. SCDs were placed on bilateral lower extremities and were connected. Arms were well padded and placed on arm boards up and out in the 90/90 position. Once in position, again we confirmed good ventilation capabilities and that lines were running appropriately. The patients Lumbar spine was then exposed. 1010s were placed outlining the incision site. Standard alcohol was used to clean the incision site and allowed to dry. C-arm was used to needle localize the pedicles at L5-S1 and bio-aura the patient and confirm level for incision which was marked with a skin marker. Operative briefing was performed with all teams and everyone in agreement to proceed. The patient was then prepped and draped in a normal sterile fashion. Timeout was then performed, and all parties agreed with the procedure to be performed. Skin incision was made over the previously marked area. Fluoroscopy was then used to target the lamina and facet joints on the Left hand side of L5-S1 and initial dilator for tubular retractor system was used to identify this area. Once in a good position, sequential dilation was taken up to 26 mm and tube selected. A 120 mm tube was then placed and secured to the table. This was confirmed to be in good position on AP and Lateral imaging. Limited myomectomy was then done to identify the lamina, interlaminar space, and facet joints. Tj-laminotomy, partial medial facetectomy and foraminotomy were performed at L5-S1 using high speed jagruti and Kerrison rongure. The ligamentum flavum was removed with Kerrison and curette. Dura and roots protected. The disc space was identified. The epidural space was irrigated, and any loose fragments removed again. Bipolar was used for hemostasis and scarring of the annulus. The area was irrigated, and meticulous hemostasis performed. The bed was inspected, and all roots have ample room and are decompressed along with the dura. There were no injuries. Retractors were then removed. The wound was copiously irrigated with NSS. The deep fascia was closed with 0 PDS. Deep sub- q with 0 Vicryl and superficial with 2-0 Vicryl. Subcuticular was closed with 3-0 stratafix. The wound edges approximated well. The wound was then cleaned, and glue tape placed on the skin and allowed to dry. It was then Covered with an Opifoam dressing. The patient was then transferred off the table back to their hospital bed a- traumatically. They were extubated by the department of anesthesia. They were then transferred to PACU in stable condition having tolerated the procedure with no complications.
== END 2023-04-16 13:46 | disposition home or self-care (01) ==
LOC: OR 05:40
PROVIDERS: ATTEND Orthopaedic Surgery
DX: M51.27 Other intervertebral disc displacement, lumbosacral region (principal); M51.37 Other intervertebral disc degeneration, lumbosacral region; M47.26 Other spondylosis with radiculopathy, lumbar region; M48.07 Spinal stenosis, lumbosacral region; E66.01 Morbid (severe) obesity due to excess calories; E11.9 Type 2 diabetes mellitus without complications; K21.9 Gastro-esophageal reflux disease without esophagitis; I10 Essential (primary) hypertension; M19.90 Unspecified osteoarthritis, unspecified site; I83.90 Asymptomatic varicose veins of unspecified lower extremity; Z90.710 Acquired absence of both cervix and uterus; Z98.51 Tubal ligation status; Z96.653 Presence of artificial knee joint, bilateral; Z98.890 Other specified postprocedural states; Z79.51 Long term (current) use of inhaled steroids; Z79.899 Other long term (current) drug therapy; Z88.0 Allergy status to penicillin; Z88.6 Allergy status to analgesic agent
CPT/HCPCS: 72100; 63047; J2250; J0330; J1100; J2710; J0690; J2405; J2001; J3010; J2704

== ENCOUNTER → 2023-09-09 | Outpatient (CLI) | payer MEDICARE, OTHER ==
[2023-09-09 11:54] VITALS: BP 136/82; PULSE 83; RESP 14; TEMP 98.4; BMI 51.2
--- NOTE | 2023-09-09 17:12 | P.HPBAR ---
Bariatric H&P - History & Physicial H&P Date: 09/09/23 History & Physicial: Visit/CC: seeking sleeve Patient initial contact: Initial weight: Initial weight in pounds: Height: 5 ft 4.75 in Initial BMI: Last weight: Current weight: 138.663 kg Current weight in pounds: 305.70 Current BMI: 51.2 [place] body weight (based on NIH guidelines): 56.132 kg Excess body weight loss: The patient is a 48 year-old F who presents for Bariatric Assessment.this is a 48-year-old female who is requesting sleeve gastrectomy. Patient is morbidly obese. Her BMI is 51. She's had lifetime problems obesity. Past Medical History Past Medical History: GERD/Reflux, Hypertension, Osteoarthritis (OA) Additional Past Medical History / Comment(s): VARICOSE VEINS History of Any Multi-Drug Resistant Organisms: None Reported Past Surgical History: Hysterectomy, Joint Replacement, Orthopedic Surgery, Tubal Ligation Additional Past Surgical History / Comment(s): TOTAL RIGHT KNEE, LEFT ANKLE AND TENDON REPAIR, RIGHT ROTATOR CUFF X2, TOTAL REVISION LEFT KNEE, LT ROTATOR CUFF REPAIR, PAIN CLINIC PROCEDURES Past Anesthesia/Blood Transfusion Reactions: Motion Sickness, Postoperative Nausea & Vomiting (PONV) Past Psychological History: Anxiety, Depression, Panic Disorder Smoking Status: Never smoker Past Alcohol Use History: None Reported Past Drug Use History: None Reported - Past Family History Mother Family Medical History: No Reported History Surgical - Exam Vital Signs Temp Pulse Resp BP 98.4 F 83 14 136/82 09/09/23 11:44 09/09/23 11:44 09/09/23 11:44 09/09/23 11:44 - General well developed, well nourished, no distress - Eyes PERRL - ENT normal pinna - Neck no masses - Respiratory normal expansion - Cardiovascular Rhythm: regular - Abdomen Abdomen: soft, non tender Bariatric Assessment & Plan Plan: morbid obesity. Patient has an excellent understanding of sleeve gastrectomy. Patient be scheduled for EGD. Bariatric Checklist Checklist: Plan: Checklist: EGD: 1. Hiatal hernia: 2. H. Pylori: HgbA1c: Vitamin D: Smoking: Never smoker Primary care physician referral: Psychiatry clearance: Cardiology clearance: Sleep study: Diet journal: VTE risk score: VTE risk level: Rehab needs at discharge:
== END ==
LOC: BARWHC3 10:08
PROVIDERS: ATTEND Surgery
DX: E66.01 Morbid (severe) obesity due to excess calories (principal); Z88.0 Allergy status to penicillin; Z88.8 Allergy status to other drugs, medicaments and biological substances; Z68.43 Body mass index [BMI] 50.0-59.9, adult
CPT/HCPCS: 99202; 99212

== ENCOUNTER → 2023-09-10 | Outpatient (CLI) | payer MEDICARE, OTHER ==
[2023-09-10 18:38] LABS: HCT 41.5 % (37.2-46.3); HGB 12.9 g/dL (12.0-15.0); MCH 26.2 pg (27.0-32.0); MCHC 31.1 g/dL (32.0-37.0); MCV 84.3 FL (80.0-97.0); Mean Platelet Volume 10.5 FL (9.5-12.2); NRBC Per 100 WBC 0 X 10*3/uL (0.00-0.01); Platelet Count 265 X 10*3/uL (140-440); RBC 4.92 X 10*6/uL (4.10-5.20); RDW 13.2 % (11.5-14.5); WBC 8.03 X 10*3/uL (4.50-10.00)
[2023-09-10 19:29] LABS: ALT 41 U/L (8-44); AST 30 U/L (13-35); Albumin 4.4 g/dL (3.8-4.9); Albumin/Globulin Ratio 1.47 Ratio (1.60-3.17); Alkaline Phosphatase 134 U/L (41-126); BUN/Creat Ratio 14.33 Ratio (12.00-20.00); Blood Urea Nitrogen 12.9 mg/dL (9.0-27.0); Calcium 9.7 mg/dL (8.7-10.3); Carbon Dioxide 24.1 mmol/L (21.6-31.8); Chloride 104 mmol/L (96-109); Glucose 151 mg/dL (70-110); Potassium 4.1 mmol/L (3.5-5.5); Sodium 143 mmol/L (135-145); Total Bilirubin 0.3 mg/dL (0.3-1.2); Total Protein 7.4 g/dL (6.2-8.2)
== END | disposition home or self-care (01) ==
LOC: LABWHC1 13:33
PROVIDERS: ATTEND Surgery
DX: E66.01 Morbid (severe) obesity due to excess calories (principal); E88.810 Metabolic syndrome; E55.9 Vitamin D deficiency, unspecified; R94.31 Abnormal electrocardiogram [ECG] [EKG]
CPT/HCPCS: 36415; 80053; 82306; 82607; 82746; 83036; 84425; 85027; 93005

== ENCOUNTER 2023-10-14 11:15 | Day surgery (SDC) | payer MEDICARE, OTHER ==
[~2023-10-14 11:15] MED LIST changes: -ACETAMINOPHEN TAB 500 MG TAB PO PRN; -GABAPENTIN 300 MG CAP PO PRN; +LIDOCAINE 1% (10MG/ML) FOR IV START INTRADERMA PRN; -TRANEXAMIC 1,000 MG/100ML-NACL 1,000 MG in SALINE 1 100ML.BAG IVPB PRN; -ceFAZolin 3 GM in SODIUM CHLORIDE 0.9% 100 ML IVPB PRN
[2023-10-14] MEDS: IV FLUID CONTINUATION 1,000 ML IV ONE (11:41)
[2023-10-14] MEDS: LACTATED RINGERS 1,000 ML IV SCH (11:50)
[2023-10-14 11:52] LABS: Glucose,Whole Blood 94 mg/dL (70-110)
--- NOTE | 2023-10-14 12:32 | P.GSHP ---
History of Present Illness H&P Date: 10/14/23 Chief Complaint: Change in bowel habits, screening colonoscopy This is a 48-year-old male who has had some change in bowel with increasing constipation. He presents today for screening colonoscopy. Past Medical History Past Medical History: Diabetes Mellitus, GERD/Reflux, Hypertension, Osteoarthritis (OA) Additional Past Medical History / Comment(s): VARICOSE VEINS, pre bariatric workup. History of Any Multi-Drug Resistant Organisms: None Reported Past Surgical History: Hysterectomy, Joint Replacement, Orthopedic Surgery, Tubal Ligation Additional Past Surgical History / Comment(s): TOTAL RIGHT KNEE, LEFT ANKLE AND TENDON REPAIR, RIGHT ROTATOR CUFF X2, TOTAL REVISION LEFT KNEE, LT ROTATOR CUFF REPAIR, PAIN CLINIC PROCEDURES. Past Anesthesia/Blood Transfusion Reactions: Motion Sickness, Postoperative Nausea & Vomiting (PONV) Smoking Status: Never smoker - Past Family History Mother Family Medical History: No Reported History Father Family Medical History: Diabetes Mellitus Medications and Allergies Home Medications Medication Instructions Recorded Confirmed Type Omeprazole 40 mg PO DAILY 10/17/21 10/14/23 History Pregabalin [Lyrica] 150 mg PO BID 10/17/21 10/14/23 History busPIRone HCL [Buspar] 30 mg PO BID 10/17/21 10/14/23 History hydrOXYzine HCL [Hydroxyzine HCl] 50 mg PO BID PRN 10/17/21 10/14/23 History Albuterol Inhaler [Ventolin Hfa 1 - 2 puff INHALATION Q6H PRN 04/10/23 10/14/23 History Inhaler] Fluticasone Nasal [place] [Flonase 2 spray EA NOSTRIL DAILY PRN 04/10/23 10/14/23 History Nasal [place]] Cariprazine HCl [Vraylar] 3 mg PO DAILY 09/09/23 10/14/23 History Dulaglutide [Trulicity] 1.5 mg SQ TH 10/11/23 10/11/23 History cloNIDine HCL [Clonidine HCl] 0.3 mg PO HS 10/11/23 10/14/23 History Allergies Allergy/AdvReac Type Severity Reaction Status Date / Time ketorolac tromethamine Allergy Nausea & Verified 10/14/23 11:36 [From Toradol] Vomiting Penicillins Allergy Swelling Verified 10/14/23 11:36 Surgical - Exam - General well developed, well nourished, no distress - Eyes PERRL - ENT normal pinna - Neck no masses - Respiratory normal expansion - Cardiovascular Rhythm: regular - Abdomen Abdomen: soft, non tender Assessment and Plan Assessment: Will perform screening colonoscopy
[2023-10-14] MEDS ORDERED: PROPOFOL 10 MG/ML 20 ML VIAL IV ONE (13:15)
--- NOTE | 2023-10-14 13:19 | P.GSHP ---
History of Present Illness H&P Date: 10/14/23 Chief Complaint: Gerd, morbid obesity Is a 48-year-old female undergoing workup for sleeve gastrectomy. Patient is issues gerd. She is morbidly obese with BMI 51. She presents today for EGD. Past Medical History Past Medical History: Diabetes Mellitus, GERD/Reflux, Hypertension, Osteoarthritis (OA) Additional Past Medical History / Comment(s): VARICOSE VEINS, pre bariatric workup. History of Any Multi-Drug Resistant Organisms: None Reported Past Surgical History: Hysterectomy, Joint Replacement, Orthopedic Surgery, Tubal Ligation Additional Past Surgical History / Comment(s): TOTAL RIGHT KNEE, LEFT ANKLE AND TENDON REPAIR, RIGHT ROTATOR CUFF X2, TOTAL REVISION LEFT KNEE, LT ROTATOR CUFF REPAIR, PAIN CLINIC PROCEDURES. Past Anesthesia/Blood Transfusion Reactions: Motion Sickness, Postoperative Nausea & Vomiting (PONV) Smoking Status: Never smoker - Past Family History Mother Family Medical History: No Reported History Father Family Medical History: Diabetes Mellitus Medications and Allergies Home Medications Medication Instructions Recorded Confirmed Type Omeprazole 40 mg PO DAILY 10/17/21 10/14/23 History Pregabalin [Lyrica] 150 mg PO BID 10/17/21 10/14/23 History busPIRone HCL [Buspar] 30 mg PO BID 10/17/21 10/14/23 History hydrOXYzine HCL [Hydroxyzine HCl] 50 mg PO BID PRN 10/17/21 10/14/23 History Albuterol Inhaler [Ventolin Hfa 1 - 2 puff INHALATION Q6H PRN 04/10/23 10/14/23 History Inhaler] Fluticasone Nasal [place] [Flonase 2 spray EA NOSTRIL DAILY PRN 04/10/23 10/14/23 History Nasal [place]] Cariprazine HCl [Vraylar] 3 mg PO DAILY 09/09/23 10/14/23 History Dulaglutide [Trulicity] 1.5 mg SQ TH 10/11/23 10/11/23 History cloNIDine HCL [Clonidine HCl] 0.3 mg PO HS 10/11/23 10/14/23 History Allergies Allergy/AdvReac Type Severity Reaction Status Date / Time ketorolac tromethamine Allergy Nausea & Verified 10/14/23 11:36 [From Toradol] Vomiting Penicillins Allergy Swelling Verified 10/14/23 11:36 Surgical - Exam - General well developed, well nourished, no distress - Eyes PERRL - ENT normal pinna - Neck no masses - Respiratory normal expansion - Cardiovascular Rhythm: regular - Abdomen Abdomen: soft, non tender Assessment and Plan Assessment: Gerd, obese. Will perform EGD.
--- NOTE | 2023-10-14 13:24 | P.OP ---
Date of Procedure: 10/14/23 Preoperative Diagnosis: Gerd, more obesity Postoperative Diagnosis: Gastritis Procedure(s) Performed: EGD Anesthesia: MAC Surgeon: Enoc Frazier Pathology: other (Antrum) Condition: stable Disposition: PACU Description of Procedure: The patient was placed on the endoscopy table in the lateral position. She received IV sedation. The Basil/oropharynx passed in the esophagus and the stomach. Scope was placed to the pylorus. The first and second portion of the duodenum appeared normal. Scope was then brought back to the antrum of this. Mildly inflamed. The scope was then retroflexed Hanh stomach appeared normal. The GE junction was at 40 cm. The distal esophagus appeared normal. The pr oximal esophagus appeared normal. Scope withdrawn for the patient.
[2023-10-14 13:33] VITALS: RESP 16
[2023-10-14 13:43] VITALS: BP 124/86; PULSE 80
[2023-10-14] MEDS: ACETAMINOPHEN TAB 500 MG TAB PO STA (13:56)
== END 2023-10-14 14:13 | disposition home or self-care (01) ==
LOC: ORWHC2ENDO 11:15
PROVIDERS: ATTEND Surgery
DX: K29.50 Unspecified chronic gastritis without bleeding (principal); E11.9 Type 2 diabetes mellitus without complications; I10 Essential (primary) hypertension; M19.90 Unspecified osteoarthritis, unspecified site; F41.0 Panic disorder [episodic paroxysmal anxiety]; F32.A Depression, unspecified; E66.01 Morbid (severe) obesity due to excess calories; Z68.43 Body mass index [BMI] 50.0-59.9, adult; Z90.710 Acquired absence of both cervix and uterus; Z83.3 Family history of diabetes mellitus; Z79.899 Other long term (current) drug therapy; Z79.891 Long term (current) use of opiate analgesic; Z79.85 Long-term (current) use of injectable non-insulin antidiabetic drugs; Z88.0 Allergy status to penicillin; Z88.6 Allergy status to analgesic agent
CPT/HCPCS: 43239; 88305

== ENCOUNTER 2023-11-06 07:30 | Day surgery (SDC) | payer MEDICARE, OTHER ==
[2023-11-06 09:49] LABS: Glucose,Whole Blood 134 mg/dL (70-110)
[2023-11-06] MEDS ORDERED: SCOPOLAMINE 1 MG/72 HR PATCH TRANSDERM ONE (09:50)
[2023-11-06] MEDS ORDERED: ONDANSETRON 4 MG/2 ML VIAL ONE (09:50)
[2023-11-06] MEDS ORDERED: BUPIVACAINE (PF) 0.25% 10 ML VIAL ONE (09:53)
[2023-11-06] MEDS ORDERED: LIDOCAINE 2% (PF) 20 MG/ML 5 ML VIAL ONE (09:53)
[2023-11-06] MEDS ORDERED: LACTATED RINGERS 1,000 ML BAG ONE (09:53)
[2023-11-06] MEDS ORDERED: PROPOFOL 10 MG/ML 20 ML VIAL IV ONE (11:56)
[2023-11-06] MEDS ORDERED: KETAMINE HCL IN 0.9 % NACL 50 MG/5 ML SYRINGE ONE (11:56)
[2023-11-06] MEDS ORDERED: LIDOCAINE 1% INJ 10MG/ML (20 ML MDV) ONE (11:56)
[2023-11-06] MEDS ORDERED: MIDAZOLAM 2 MG/2 ML VIAL ONE (11:56)
[2023-11-06] MEDS ORDERED: fentaNYL (PF) 50 MCG/ML 2 ML AMP ONE (11:56)
== END 2023-11-06 12:55 | disposition home or self-care (01) ==
LOC: OR 07:30
PROVIDERS: ATTEND Orthopaedic Surgery Hand Surgery
DX: G56.01 Carpal tunnel syndrome, right upper limb

== ENCOUNTER 2024-01-07 12:25 | Day surgery (SDC) | payer MEDICARE ==
[2024-01-02 12:40] VITALS: BMI 46.3
[2024-01-07 12:52] VITALS: TEMP 97.2
[2024-01-07 12:59] LABS: Glucose,Whole Blood 108 mg/dL (70-110)
[2024-01-07] MEDS: LACTATED RINGERS 1,000 ML IV SCH (12:59)
[2024-01-07] MEDS: IV FLUID CONTINUATION 1,000 ML IV ONE (13:00)
[2024-01-07] MEDS ORDERED: MIDAZOLAM 2 MG/2 ML VIAL ONE (13:13)
[2024-01-07] MEDS ORDERED: ROPIVACAINE 5MG/ML 20ML VIAL ONE (13:13)
[2024-01-07] MEDS ORDERED: fentaNYL (PF) 50 MCG/ML 2 ML AMP ONE (13:13)
--- NOTE | 2024-01-07 13:27 | P.PCN ---
Date of Procedure: 01/07/24 Procedure(s) Performed: PREOPERATIVE DIAGNOSIS : 1- Lumbar spondylosis with Facet Arthropathy with out myelopathy . 2- Lumber degenerative disc disease POSTOPERATIVE DIAGNOSIS: 1- Lumbar spondylosis with Facet Arthropathy without myelopathy . 2- Lumber degenerative disc disease PROCEDURE: Diagnostic bilateral L4 , and L5 medial branch block under fluoroscopy guidance(fluoroscopy images available in the radiology Department ) ( To target the facet joint between Bilateral L5-S1 )#1st ANESTHESIA: moderate sedation with intravenous Versed 2 mg and Fentanyl 100 mcg. (sedations started at 13:13, ended at 13:22 ) EBL: Minimal COMPLICATION: None PROCEDURE INDICATION: Chronic low back pain secondary to Facet arthropathy unresponsive to conservative treatment. PROCEDURE DESCRIPTION: the patient was seen and identified in the preop holding area , risks and benefits and possible complications of the procedure and alternative were discussed with the patient, and the patient agreed to proceed with the procedure and signed the consent and vital signs monitored during the procedure and fluoroscopy was used to maximize the benefit and accuracy of the needle placement, and sedation was given to decrease patient anxiety, patient was taken to the procedure room and placed in prone position vital signs monitored in the back prepped with chlorhexidine X3 then under strict sterile technique using a right oblique fluoroscopy ,the junction of the transverse process and the superior articulating process of the right L4 , and L5 vertebra which corresponding to the fluoroscopy image of the eye of the Andrea dog on the block side for the medial branches and subsequently , after local infiltration of skin and subcu tissuies with Ropivacaine 0.5 % , one mL at each level ,then 22-gauge 5 inches long Quincke-type needles , 2 needle was used , each one of them placed at the junction of the base of the transverse process and the superior articular process at the appropriate level, and the needle was advanced until the periosteum contacted, needle placement confirmed with AP oblique and lateral view and after appropriate needle placement confirmed, and after negative aspiration for heme and CSF and there was no paresthesia 1mL of Ropivacaine 0.5% , then half mL injected at each level after negative aspiration the needle subsequently removed and the same procedure repeated for the left side at left side at L4 and L5 levels. At the end of the procedure and the needles removed and a bandage applied after the skin was cleaned the cleaning solution patient taken to recovery room in stable condition and monitors in the recovery room for 20-30 minutes and discharged home in stable condition after discharge criteria met and patient will follow up with the pain clinic in 2-4 weeks
[2024-01-07] MEDS: IV FLUID CONTINUATION 800 ML IV ONE (13:31)
[2024-01-07 13:33] VITALS: RESP 16
[2024-01-07 13:47] VITALS: BP 133/78; PULSE 82
--- NOTE | 2024-01-07 14:11 | FL ---
EXAMINATION TYPE: FL guided pain mgmt statistic DATE OF EXAM: 01/07/2024 FLUOROSCOPY MONET LUM FB IN PAIN MANAGEMENT FL TIME 22.3 SECS DAP [id number]. 4 images provided. [facility], , 01/07/2024 2:09 PM
== END 2024-01-07 14:09 | disposition home or self-care (01) ==
LOC: ORPAIN 12:25
PROVIDERS: ATTEND Specialist
DX: M47.817 Spondylosis without myelopathy or radiculopathy, lumbosacral region (principal); M51.379 Other intervertebral disc degeneration, lumbosacral region without mention of lumbar back pain or lower extremity pain
CPT/HCPCS: 64493; J2250; J3010; J2795; 99152

== ENCOUNTER → 2024-01-15 | Outpatient (CLI) | payer MEDICARE ==
[2024-01-15 14:40] VITALS: BP 134/90; PULSE 93; RESP 16
--- NOTE | 2024-01-15 14:43 | P.PAINPG ---
PQRS Measure Charge Sheet Comment: A 48 yr old female w and grandchild at side with a history of severe and chronic LBP secondary to radiculopathy, spondylosis and facet arthropathy without myelopathy presents today for evaluation s/p BL MBB L5-S1 #1. Pt states she experienced 100 % pain relief x 6 hrs s/p procdure. Pt was referred in 2022 to have SCS trial. Pain level is provoked at 9 /10 in intensity, constant, localized in the lower lumbar spine, sharp in character without shooting pain. Pain is provoked by standing, walking for periods > 20 minutes. Pain is alleviated with physician guided stretches daily since Mid Oct 2023, medications, heat, ice, PT 3 years ago which provoked pain, sitting, repositioning and rest. Interventional pain procedures completed include L TFESI L5-S1x1, JOSSELYN L4-5 x1, BL L3-L5 x1, BL MBB L5-S1 x1 Patient is currently on Tyl, Advil Patient denies any side effects of the medication(s), denies excessive drowsiness or sleepiness, denies suicidal ideation and reports that the current pain medication is helping to control the pain and improve activities of daily living. Patient denies any motor or sensory deficits. Patient denies any fever or night sweats, denies any change in the bowel movements or urination. Physical Examination: -Constitutional: Cooperative. Not in acute distress . - Neurologic: Cranial nerve II to XII intact. No focal neurological deficits. - Psychatric: Alert & oriented x 3. Matching mood & appropriate affect. Judgment and insight intact. - Musculoskeletal: Cervical spine: Muscle bulk/ tone/ strength in the bilateral upper extremities normal Vertebral body tenderness to palpation over Spurling test positive Distraction test positive Facet loading test positive TTP Thoracic spine Muscle bulk / tone/ strength in the bilateral paraspinal muscles normal Vertebral body tender to palpation over Facet loading test positive TTP Lumbar spine: Motor bulk/ tone/ strength lower extremities , thigh and legs : 5/5 Deep tendon reflexes : Normal Knee Jerk. Normal Ankle Jerk . Vertebral body tenderness to palpation over L4 Lumbar Facet Loading Test positive over BL L5-S1 facets Poor 2 pt discrimination over BL L4-S1 paraspinal muscles Straight Leg Raise: positive at 30 degrees right side/ left side Gaenslen's Test positive Sacral spine : Severe tenderness over the Sacroiliac joint: right side / left side Range of motion: Flexion of the lumbar spine <60 degrees Range of motion: Extension of the lumbar spine <20 degrees Gaenslen's Test positive right side / left side [place] test: positive right side / left side Thigh Thrust Test positive right side / left side Sacral Thrust Test positive right side / left side Imaging: MRI non contrast lumbar spine from 07/02/22 reviewed Assessment and plan: Chronic LBP secondary to L5-S1 Microdiscectomy Recommendation of ANNA MICHEL L5-S1 #2. Risks, benefits of procedure discussed and pt verbalized understanding. Admits to anticoagulant use or medical history of diabetes. Protocol for discontinuation/ continuation of medications kristin procedure discussed. Minimal anesthesia including Fentanyl and Versed if clinically indicated. All questions answered. I have spent less than 30 minutes on patient care today. Dr Phelps was available by phone for the evaluation of this patient. The time was used to review the medical records including relevant urine studies and Prescription history (MAPs), review of the available imaging, evaluation and examination of the patient, coordination of care with the medical staff and if applicable referring physicians, as well as creation of the medical record PQRS Narrative: Smoking Status Never smoker Hx Alcohol Use (MH) No Home Medications: Ambulatory Orders Omeprazole 40 mg PO DAILY 10/17/21 Pregabalin [Lyrica] 150 mg PO BID 10/17/21 busPIRone HCL [Buspar] 30 mg PO BID 10/17/21 hydrOXYzine HCL [Hydroxyzine HCl] 50 mg PO BID PRN 10/17/21 Albuterol Inhaler [Ventolin Hfa Inhaler] 1 - 2 puff INHALATION Q6H PRN 04/10/23 Fluticasone Nasal [place] [Flonase Nasal [place]] 2 spray EA NOSTRIL DAILY PRN 04/10/23 Cariprazine HCl [Vraylar] 3 mg PO DAILY 09/09/23 cloNIDine HCL [Clonidine HCl] 0.3 mg PO HS 10/11/23 Tirzepatide [Mounjaro] 2.5 mg SQ FR 01/02/24 Controlled Substance Measures - Controlled Substance Measures Is patient prescribed a controlled substance at discharge?: No
== END ==
LOC: PNWHC3 13:01
PROVIDERS: ATTEND Specialist
DX: M47.816 Spondylosis without myelopathy or radiculopathy, lumbar region
CPT/HCPCS: 99211

== ENCOUNTER 2024-01-28 11:54 | Day surgery (SDC) | payer MEDICARE ==
[2024-01-27 08:41] VITALS: BMI 44.9
[2024-01-28 14:19] VITALS: TEMP 97
[2024-01-28] MEDS: IV FLUID CONTINUATION 1,000 ML IV ONE ×2 (14:20→15:36)
[2024-01-28 14:34] LABS: Glucose,Whole Blood 102 mg/dL (70-110)
[2024-01-28] MEDS ORDERED: ROPIVACAINE 5MG/ML 20ML VIAL ONE (15:13)
[2024-01-28] MEDS ORDERED: fentaNYL (PF) 50 MCG/ML 2 ML AMP ONE (15:13)
[2024-01-28] MEDS ORDERED: MIDAZOLAM 2 MG/2 ML VIAL ONE (15:13)
--- NOTE | 2024-01-28 15:35 | P.PCN ---
Description of Procedure: Preprocedure diagnosis. 1. Lumbar spondylosis with facet joint arthropathy without myelopathy. 2. Lumbar degenerative disc disease. Postprocedure diagnosis. As above. Procedure done. Bilateral diagnostic block with local anesthetics at L4, L5 medial branch to target the facet joint L5-S1 with fluoroscopic guidance (fluoroscopy images are available in the radiology department) . Anesthesia. Moderate sedation with intravenous Versed 2 mg and fentanyl and local infiltration with local anesthetics. In OR, continuous pulse ox, EKG, blood pressure and verbal communication was maintained. Time. Blood loss. Minimal. Indication. The patient has low back pain secondary to lumbar facet joint arthropathy. Discussed the procedure and alternative and complications which includes infection, bleeding, nerve damage, paralysis ,aggravation of pain. Patient understands and all questions were answered. Patient iunderstands that if any pain relief occurs it will last for a few hours to a few days maximum. Procedure description. After getting consent patient was taken in the OR in prone position. Back prepped with chlorhexidine and draped in sterile fashion. After injecting 5 mL of plain 1% lidocaine subcutaneously, a 22-gauge spinal needle was introduced under tunnel vision of the fluoroscope at the junction of the superior articular process with RIGHT ala of the sacrum. With slight oblique fluoroscope, after injecting 5 mL of plain 1% lidocaine subcutaneously, a 22-gauge spinal needle was introduced under tunnel vision of the fluoroscope at the junction of the superior articular process with RIGHT L5 transverse process. Negative CSF, negative blood, negative paresthesia. After needle position confirmation by AP and crosstable lateral view, after negative aspiration, half milliliters of solution were injected at each point. Total 1 mL of solution was injected on the right side which consists of 0.5% ropivacaine. In exactly same way, LEFT sided injections were done at the following 2 points. Junction of the superior articular process with left ala of the sacrum, junction of the superior articular process with the left L5 transverse process using 0.5 mL of solution at each point. Total 1 mL of solution was injected on the left side which consists of 0.5% ropivacaine . Spinal needles were taken out and bandages were applied. Disposition. Patient tolerated the procedure well. No complication. Discharged home in stable condition
[2024-01-28 15:40] VITALS: RESP 16
[2024-01-28 15:56] VITALS: BP 113/80; PULSE 82
--- NOTE | 2024-01-28 16:21 | FL ---
Fluoroscopy INDICATION: Pain FINDINGS: Fluoroscopy time: 58.8 seconds. Total dose area product (DAP) in uGy*m?, mGy*cm? (or similar): 0.12835 Images obtained: 5. Degenerative disc changes are evident within the lower lumbar spine IMPRESSION: 1. Documentation of fluoroscopy. [facility], Workstation: [email or web address], 01/28/2024 4:19 PM
== END 2024-01-28 16:11 | disposition home or self-care (01) ==
LOC: ORPAIN 11:54
PROVIDERS: ATTEND Pain Medicine Interventional Pain Medicine
DX: M47.816 Spondylosis without myelopathy or radiculopathy, lumbar region (principal); M51.369 Other intervertebral disc degeneration, lumbar region without mention of lumbar back pain or lower extremity pain; Z88.0 Allergy status to penicillin; Z88.6 Allergy status to analgesic agent
CPT/HCPCS: 64493; 64494; J2250; J3010; J2795; 99152

== ENCOUNTER → 2024-03-16 | Outpatient (CLI) | payer MEDICARE | END | disposition home or self-care (01) | LOC: LABPAT 13:24 | PROVIDERS: ATTEND Orthopaedic Surgery | DX: Z01.818 Encounter for other preprocedural examination (principal); Z22.322 Carrier or suspected carrier of Methicillin resistant Staphylococcus aureus; M47.26 Other spondylosis with radiculopathy, lumbar region | CPT/HCPCS: 86850; 86900; 86901; 87070 ==

== ENCOUNTER 2024-03-23 06:03 | Day surgery (SDC) | payer MEDICARE ==
[2024-03-19 11:22] VITALS: BMI 44.9
--- NOTE | 2024-03-22 12:04 | P.HPOR ---
History of Present Illness H&P Date: 03/16/24 .D:Date: 03/16/24 : 03:25pm .T:Title: PRE-OP H1 [facility] [address] [place] [address] [facility] [place] [address]| PROVIDER: ADAL GU DO CLINICAL SUMMARY: Ms. Yates is a 49-year-old female presenting with severe low back pain (VAS 6/10) that is primarily facetogenic in nature. She has previously undergone bilateral facet injections at L4-5 and L5-S1 which provided >80% relief for approximately 3 hours before the pain gradually returned to severe levels. Her symptoms are exacerbated by back bending and twisting, with partial relief from forward flexion to a certain degree. While her lower extremity pain has improved following a prior microdiscectomy, her back pain persists despite conservative measures including physical therapy, medications (including Celebrex, OTC analgesics, and Gabapentin), and activity modification. Imaging reveals L5-S1 spondylosis with severe stenosis, disc height loss, and post-surgical changes. Given the patient's positive response to diagnostic facet blocks and failure of conservative management, she is scheduled for L5-S1 bilateral medial branch transection with rhizotomy for facetogenic pain control. DEMOGRAPHICS: Age: 49 year Height: 5'4" Weight: 290 lbs BP:/ BMI: 49.78 kg/m2 Occupation: N/A CC: Low back pain VAS: 6 HISTORY: Ms. Yates presents to the office today, 03/17/24, for a pre-operative appointment preceding her L5-S1 BILATERAL MEDIAL BRANCH TRANSECTION WITH RHIZOTOMY FOR FACETOGENIC PAIN CONTROL. She continues to have severe low back pain that is facetogenic in nature. She continues to have severe low back pain that is refractory to conservative measures. She has had two facet injections in her L5-S1 and L4-5 region b/l that provided her >80% relief of her sx for about 3 hrs after injections. Then the pain gradually came back and now it is severe again. She has been taking OTC and Rx medication for her pain but nothing seems to make it go away completely. She has more pain with back bending and twisting and is it somewhat relieved by bending forward to a certain point but then becomes worse. LE pain is much better after microdiscectomy. Back pain has not gotten any better. She denies any other sx at this time. Patient denies any f/c/sob/cp, perineal numbness or tingling, bowel, or bladder incontinence/retention. Patient is ambulatory independent. P1 The patients past social, medical, family, surgical history, as well as review of systems, have been reviewed. Please refer to the History and Physical form that has been scanned into our electronic medical record system. R0 16 points review of systems completed and as stated in HPI, all other systems reviewed are negative. PAST TREATMENTS: PAST IMAGING: YES -XR, MRI, CT TRAUMA RELATED: NO - WORK RELATED: NO - PT IN LAST 6 MONTHS: YES -Multiple rounds PHYSICIAN DIRECTED HOME EXERCISE PROGRAM: YES -Some minor improvement in leg pain when she did, but surgery helped more. ACTIVITY MODIFICATION: YES -limited on her ADLs due to pain Cannot ride motorbike any longer due to pain Limited her BLTPT to 20 lbs which helps, but she needs to be able to do more to take care of house and job. MEDICATIONS: YES -Celebrex, OTC Tylenol, Aleve, Motrin, Gabapentin ALTERNATIVE INTERVENTIONS (CHIROPRACTIC, ACUPUNCTURE, MASSAGE, RICE): YES -RICE, minimal help BRACING: NO - INJECTIONS (JOSSELYN, TF, RFA): YES -Sever Facet blocked L4-S1 with >80% relief of sx for at least 3 hrs after Gradually came back and now is severe again MEDICAL HISTORY: Past Medical History: REVIEWED STATED IN CHART Past Surgical History: REVIEWED STATED IN CHART Social History: REVIEWED STATED IN CHART SMOKING: Never smoker ETOH: None SUBSTANCES: None Family History: REVIEWED STATED IN CHART P1 Current Medications: Rx: busPIRone 30 mg tablet Ref: 0 Instructions: take 1 tablet (30 mg) by oral route 2 times per day Rx: Lyrica 25 mg capsule Ref: 0 Instructions: take 1 capsule (25 mg) by oral route 3 times per day Rx: omeprazole 40 mg capsule,delayed release Ref: 0 Instructions: take 1 capsule (40 mg) by oral route 2 times per day before a meal Rx: TylenoL Ref: 0 Rx: hydrOXYzine pamoate 50 mg capsule Ref: 0 Instructions: take 1 capsule (50 mg) by oral route 4 times per day Rx: traMADol 50 mg tablet Ref: 0 Instructions: take 1 tablet (50 mg) by oral route every 6 hours as needed Rx: cyclobenzaprine 10 mg tablet Ref: 0 Instructions: TAKE 1 TABLET BY MOUTH THREE TIMES DAILY Rx: cloNIDine HCl 0.3 mg tablet Ref: 0 Instructions: take 1 tablet (0.3 mg) by oral route bedtime Rx: Mounjaro 2.5 mg/0.5 mL subcutaneous pen injector Ref: 0 Instructions: inject 2.5 mg by subcutaneous route once weekly for 4 weeks P1 PHYSICAL EXAM: General: AOX3, NAD, Well hydrate, well nourished HEENT: No lumps or masses Extremities: No color changes, no pooling INTEGUMENT: Appearance: Normal color and turgor Surgical Incisions: Well healed paraspinal MD incision Hairy Patches: ABSENT Dorsal Skin Dimples: Normal [employer] spots: ABSENT PALPATION: TTP Midline: NO Paracervical: NO Parathoracic: NO Paralumbar: YES over L4-5 and L5-S1 bilateral facet region SIJ TESTING: Tested NEG provocative testing at this time. POSTURAL BALANCE: Coronal: BALANCED Sagittal: BALANCED Shoulder height: LEVEL Pelvic Girdle: LEVEL ROM AND APPEARANCE: Neck: UNRESTRICTED Lumbar: RESTRICTED with p pain Shoulders: Symmetrical Hips: Symmetrical Knees: Symmetrical Hands: Symmetrical Feet: Symmetrical VASCULAR STATUS: PALPABLE PULSES B/L UE AND LE 2/4 RAD/ULNAR/DP/PT Edema: NONE NEUROLOGICAL EXAMINATION: Mental Status: Awake, alert, fully oriented with normal attention, concentration, and memory. Fluent appropriate speech. CRANIAL NERVES: I: Olfactory not assessed. II: Visual acuity normal, no visual field deficit noted with confrontation. III, IV: Normal pupillary reflexes & intact extraocular movements without nystagmus. V, : Intact symmetrical facial sensation. VII: Intact symmetrical facial motor movement: Hearing intact. IX, X: Intact gag, swallow, & normal voice. XI: Sternocleidomastoid, trapezius function intact. XII: Tongue midline with normal movements. TENSIONING: * L'HERMITTE'S SIG:NEG SPURLUNG'S SIGN:NEG CUBITAL TUNNEL COMPRESSION:NEG TINELS AT WRIST:NEG STRAIGH LEG RAISE:NEG CONTRALATERAL STRAIGHT LEG RAISE: NEG MOTOR EXAM (0-5/5, NT) Muscle appearance: Symmetrical, without signs of atrophy or dystrophy UPPER EXTREMITY RIGHT LEFT Shoulder Abduction 4+ 5 Biceps 5 5 Triceps 5 5 Wrist Extension 5 5 Hand Intrinsics 5 5 Pattern Scratcher 5 5 LOWER EXTREMITY RIGHT LEFT Hip Flexion 5 5 Knee Extension 5 5 Knee Flexion 5 5 Dorsiflexion 5 5 Plantarflexion 5 4+ EHL 5 5 FHL 5 5 REFLEXES (0-4/2, NT): RIGHT LEFT Bicep 2 2 Brachioradialis 2 2 Triceps 2 2 Patellar 2 2 Achilles 2 2 PATHOLOGICAL REFLEXES: RIGHT LEFT GARCIA'S ABSENT ABSENT CLONUS ABSENT ABSENT BABINSKI ABSENT ABSENT RECTAL TONE: INTACT/NT SENSATION (0-4, NT): Sensation intact to LT and Pain * C5-T1 distribution BUE * L2-S2 distribution BLE *Exceptions below* DERMATOMAL DEFICIT/RADICULAR PATTERN: None, some paresthesia still in S1 on the left, but mostly due to post op GAIT AND FUNCTIONAL EVALUATION: AMBULATORY AID INdependent today ROMBERG'S TEST INTACT HAND AND FINGER DEXTERITY INTACT YES DYSDIADOCHOKINESIA EXAM NEG B/L YES TOE/HEEL WALK INTACT WITH GOOD BALANCE YES with pain SQUAT AND RISE W/O ASSISTANCE TO 60 DEG KNEE FLEXION with pain YES SINGLE LEG STANCE NOT INTACT TRENDELENBURG NT IMAGING: Pain management Fluro is reviewed from 01/27 and 01/06 facet injections appears to be in good position for injection. 11/14 lumbar spine films reviewed again shows L5-S1 spondylosis with severe stenosis, disc height loss and post surgical changes but no fractures or lesions. MRI and CT reviewed as well and echo this. IMPRESSION: It was my pleasure to have seen and examined Mis. I reviewed the patient's clinical syndrome, physical findings, and imaging studies during the appointment today. It is my impression that the patient has a diagnosis of. 1. L5-S1 BILATERAL FACET ARTHROPATHY WITH SEVERE LOW BACK PAIN 2.L5-S1 DDD 3.LOW BACK PAIN, MECHANICAL PLAN: DISCUSSION: -I have discussed options with the patient I discussed options with the patient for treatment including nonsurgical and surgical options. At this point she has done well with facet blocks which have given her great relief however it does not last and she would like a lasting effect we discussed rhizotomy versus medial branch transection and she elects for medial branch transection due to the track record the direct visualization and the better outcomes. She is comfortable with the risks and benefits which we discussed at length. She would like to proceed as outlined below SURGICAL RECOMMENDATION -L5-S1 BILATERAL MEDIAL BRANCH TRANSECTION WITH RHIZOTOMY FOR FACETOGENIC PAIN CONTROL Surgical Procedure Risk Review Mis Yates is a 49 year old female presenting for evaluation of sudden onset of SEVERE LOW BACK PAIN, FACET PAIN, PAIN WITH ROTATION. It was my pleasure to have seen and examined Ms. Yates. In our visit today we have had a chance to go over subjective complaints, physical examination findings and treatments, including the natural course history without intervention and various interventional options. The imaging demonstrates FACET ARTHROPATHY SEVERE WITH DDD AND FACET OVERGROWTH . On physical exam, Ms. Yates demonstrates PAIN OVER THE L5-S1 FACETS TO PALPATION B/L. PAIN WITH BACK BENDING AND TWISTING, SOME RELIEF WITH FLEXION. DIFFICULTY WITH ADLS SECONDARY TO PAIN. I explained to the patient that as her condition progresses it could cause CONTINUED AND PROGRESSIVE PAIN . At this time, based on the patients imaging and physical exam, I recommend surgery in the form or a: L5-S1 BILATERAL MEDIAL BRANCH TRANSECTION WITH RHIZOTOMY FOR FACETOGENIC PAIN . I discussed the risk and benefits of this procedure at length with Ms. Yates. The patient agreed to consider pursuing the procedure mentioned above. Plan: 1. L5-S1 BILATERAL MEDIAL BRANCH TRANSECTION WITH RHIZOTOMY FOR FACETOGENIC PAIN 2. Follow up with PCP for surgical clearance 3. Review of surgical risks and benefits as well as an educational packet on the proposed surgical procedure. Risks: All surgical procedures come with inherent risks, including those related to positioning, anesthesia, intraoperative findings, and postoperative complications. It is important to understand that surgery does not come with any guarantee of a successful outcome as complications and adverse events are always possible. The patient was given a handout in office today discussing the surgical procedure and risks associated with the intervention, both of which were discussed with the patient. These risks include but are not limited to the following: ? Experiencing same, different or even worse symptoms in back, neck, arms, or legs compared to before surgery. ? Requiring further surgery or other forms of treatment presently or at some time in the future at same or other levels of the intended spine surgery. ? On an extreme but fortunately relatively rare basis severe complication such as blindness, stroke, heart attack, temporary and/or permanent nerve injury, paralysis, coma, or may occur, sometimes without known explanation. ? Surgical complications may include but are not limited to risk of infection, fluid accumulation in the surgical dissection site, including a seroma or hematoma, that requires additional surgery, wound drainage, bleeding, new numbness or weakness, vision changes/loss, spinal fluid leakage, non-healing and/or infected incision, headaches, difficulty or inability to swallow, hoarseness, hemopneumothorax, pneumothorax, impotence, retrograde ejaculation, vaginal dryness; injury to nerves, spinal cord, blood vessels, lymphatics or other vital organs (i.e., bowel injury, injury to the great vessels); heterotopic bone formation; complications related to the hardware such as screws, rods, cages including misplaced hardware, device failure, instrumentation at the wrong spine level, hardware fracture/breakage, or hardware loosening; vertebral failure of the spinal column above or below the newly placed hardware; retained surgical instrumentations or devices and the need for further surgery. ? Medical risks of the planned spine surgery include but are not limited to generalized Infections to the whole body or local areas outside of the surgical site (sepsis), heart attack, bleeding, anaphylaxis, meningitis, seizure, epilepsy, hearing loss, burn benoit, laceration of the head or other areas of the body, bruising, hypersensitivity of the skin, bladder over distension; allergic reaction; shoulder injury related to positioning; fat, blood and air clots to other areas of the body like heart, lungs, brain; failure of internal organs such as lungs, kidneys, liver and excessive bleeding. If blood transfusions are necessary, note that transfusions may cause intolerance reactions such as anaphylaxis or other complex reactions. Despite best efforts, the results of spine surgery might not heal in terms of bone, soft tissues such as skin, fascia, ligaments, and joints. Additionally, in order to achieve best possible results, spine surgery may be carried out beyond the initially planned levels and involve decompression, fusion including insertion of hardware at levels other than the original intended area of surg ical interest change some portions of the procedure in order to ensure the best possible outcomes. With spine surgery and spinal fusion, there are different off label uses of instrumentation (devices, implants and hardware) as well as biological substances (bone morphogenic proteins, demineralized bone matrix) as well as using extra bone from allograft sources (i.e. cadaver bone) or autograft (iliac crest bone, ribs, or the spine itself). The patient has been given information about these practices and their inherent risks and benefits. [facility] Physician Assistants are medically trained surgical providers who function in the outpatient, inpatient, and operating room setting under the direct supervision of the attending surgeon.They assist in the operating room with direct supervision of the attending surgeons. The patient has had a chance to review all the listed information, has been given print outs detailing this information, and has had all his/her questions answered to their satisfaction. It was my pleasure to have seen and examined Ms. Yates. In our visit today we have had a chance to go over my understanding of our patient's current condition, the natural course history without intervention and various interventional options. Questions were invited and answered, and the patient wishes to proceed as outlined above. I have seen and examined the patient for 25 minutes and we have spent more than 50% of the time in repeat and detailed counseling about the patient's condition, its natural course history with out and as much as can be predicted with surgery and re-review of various surgical treatment options. In conclusion,Ms. Yates and her spouse/partner requested we proceed with the above suggested surgery and are willing to accept risks and limitations of the suggested surgery as nature of the disease process and our best attempts at treatment for the condition. Medical Necessity: Ms. Calderons condition is causing significant functional limitations, affecting her activities of daily living and quality of life. Despite multiple conservative treatments, including medications, physical therapy, and facet injections, her pain remains severe and refractory. The chronic nature of her pain and its impact on her daily functioning necessitate more definitive intervention. Surgical and Authorization Rationale: Based on the patient's clinical presentation, imaging findings, and response to previous treatments, an L5-S1 bilateral medial branch transection with rhizotomy for facetogenic pain control is recommended. This procedure is medically necessary as it offers a more lasting solution for pain relief compared to temporary facet injections. The patient has demonstrated a positive response to facet blocks, indicating a high likelihood of success with this more permanent intervention. Authorization for this procedure is warranted due to the failure of conservative management, the severity of the patient's symptoms, and the potential to significantly improve her function and quality of life. FOLLOW UP: POSTOP PLAN AT NEXT VISIT: RECHECK PATIENT EDUCATION: Medications Reviewed: YES In our visit today Ms. Yates and I have had a chance to go over my understanding of the patient's current condition, the natural course history without int ervention and various interventional options. Questions were invited and answered, and the patient wishes to proceed as outlined above. I will be sure to keep you updated after Ms. Yates returns here for further follow-up. Thank you again for your referral. Please do not hesitate to contact me if you have any further questions. Signed and authenticated by: Adal Meng [facility] [address] [place] [address] . This message is confidential, intended only for the named recipient(s) and may contain information that is privileged or exempt from disclosure under applicable law. If you are not the intended recipient(s), you are notified that the dissemination, distribution or copying of this information is prohibited. If you received this message in error, please notify the sender then delete this message. # SIGNED BY Adal Gu (GOO)03/21/2024 02:07PM Past Medical History Past Medical History: Diabetes Mellitus, GERD/Reflux, Hypertension, Osteoarthritis (OA) Additional Past Medical History / Comment(s): VARICOSE VEINS, History of Any Multi-Drug Resistant Organisms: None Reported Past Surgical History: Hysterectomy, Joint Replacement, Orthopedic Surgery, Tubal Ligation Additional Past Surgical History / Comment(s): TOTAL RIGHT KNEE, LEFT ANKLE AND TENDON REPAIR, RIGHT ROTATOR CUFF X2, TOTAL REVISION LEFT KNEE, LT ROTATOR CUFF REPAIR, PAIN CLINIC PROCEDURES. Past Anesthesia/Blood Transfusion Reactions: Motion Sickness, Postoperative Nausea & Vomiting (PONV) Past Psychological History: Anxiety, Depression, Panic Disorder Smoking Status: Never smoker Past Alcohol Use History: None Reported Past Drug Use History: None Reported - Past Family History Mother Family Medical History: No Reported History Father Family Medical History: Diabetes Mellitus Medications and Allergies Home Medications Medication Instructions Recorded Confirmed Type Omeprazole 40 mg PO DAILY 10/17/21 03/19/24 History Pregabalin [Lyrica] 150 mg PO BID 10/17/21 03/19/24 History busPIRone HCL [Buspar] 30 mg PO BID 10/17/21 03/19/24 History hydrOXYzine HCL [Hydroxyzine HCl] 50 mg PO BID PRN 10/17/21 03/19/24 History Albuterol Inhaler [Ventolin Hfa 1 - 2 puff INHALATION Q6H PRN 04/10/23 03/19/24 History Inhaler] cloNIDine HCL [Clonidine HCl] 0.3 mg PO HS 10/11/23 03/19/24 History Tirzepatide [Mounjaro] 2.5 mg SQ FR 01/02/24 03/19/24 History Calcium Carbonate/Vitamin D3 1 tab PO DAILY 03/19/24 03/19/24 History [Calcium 500-Vit D3 15 Mcg (600 Iu)] Allergies Allergy/AdvReac Type Severity Reaction Status Date / Time ketorolac tromethamine Allergy Nausea & Verified 03/19/24 11:17 [From Toradol] Vomiting Penicillins Allergy Swelling Verified 03/19/24 11:17 Physical Examination Osteopathic Statement: *. No significant issues noted on an osteopathic structural exam other than those noted in the History and Physical/Consult.
[~2024-03-23 06:03] MED LIST changes: +TRANEXAMIC 1,000 MG/100ML-NACL 1,000 MG in SALINE 1 100ML.BAG IVPB PRN
[2024-03-23] MEDS: IV FLUID CONTINUATION 1,000 ML IV ONE (06:18)
[2024-03-23 06:39] LABS: Glucose,Whole Blood 133 mg/dL (70-110)
[2024-03-23] MEDS: ONDANSETRON 4 MG/2 ML VIAL IVP PRN (06:39)
[2024-03-23] MEDS: GABAPENTIN 300 MG CAP PO PRN (06:40)
[2024-03-23] MEDS: ACETAMINOPHEN TAB 500 MG TAB PO PRN (06:40)
[2024-03-23] MEDS: DEXAMETHASONE SOD PHOSPHATE 4 MG/ML 1 ML VIAL IVP STA (06:41)
[2024-03-23] MEDS: LACTATED RINGERS 1,000 ML IV SCH (06:42)
[2024-03-23] MEDS: SCOPOLAMINE 1 MG/72 HR PATCH TRANSDERM STA (06:57)
[2024-03-23] MEDS ORDERED: HYDROmorphone 0.5 MG/0.5 ML SYRINGE IVP PRN (07:00)
[2024-03-23] MEDS ORDERED: SUCCINYLCHOLINE CHLORIDE 200 MG/10 ML VIAL IV ONE (07:23)
[2024-03-23] MEDS ORDERED: LIDOCAINE 1% INJ 10MG/ML (20 ML MDV) ONE (07:23)
[2024-03-23] MEDS ORDERED: PROPOFOL 10 MG/ML 20 ML VIAL IV ONE (07:23)
[2024-03-23] MEDS ORDERED: fentaNYL (PF) 50 MCG/ML 2 ML AMP ONE (07:23)
[2024-03-23] MEDS ORDERED: ROCURONIUM 10 MG/ML (5 ML VIAL) IV ONE (07:23)
[2024-03-23] MEDS ORDERED: MIDAZOLAM 2 MG/2 ML VIAL ONE (07:23)
[2024-03-23] MEDS ORDERED: NEOSTIGMINE 1 MG/ML 10 ML VIAL ONE (07:23)
[2024-03-23] MEDS ORDERED: TRANEXAMIC 1,000 MG/100ML-NACL PREMIX BAG ONE (07:23)
[2024-03-23] MEDS ORDERED: GLYCOPYRROLATE 0.2 MG/ML 2 ML VIAL ONE (07:23)
[2024-03-23] MEDS: ceFAZolin 3 GM in SODIUM CHLORIDE 0.9% 100 ML IVPB PRN (07:28)
[2024-03-23] MEDS: BUPIVACAINE (PF) 0.5% 30 ML VIAL SQ ONE (07:56)
[2024-03-23] MEDS: LIDOCAINE 2%-EPI 1:100,000 20 ML VIAL SQ ONE (07:56)
--- NOTE | 2024-03-23 08:44 | P.OP ---
Date of Procedure: 03/23/24 Preoperative Diagnosis: 1. L5-S1 BILATERAL FACET ARTHROSIS, SEVERE 2. LOW BACK PAIN 3. LE RADICULOPATHY S/P MICRODISCECOMTY 4. L5-S1 SPONDYLOSIS WITH STENOSIS Postoperative Diagnosis: 1. L5-S1 BILATERAL FACET ARTHROSIS, SEVERE 2. LOW BACK PAIN 3. LE RADICULOPATHY S/P MICRODISCECOMTY 4. L5-S1 SPONDYLOSIS WITH STENOSIS Procedure(s) Performed: 1. L5-S1 BILATERAL MEDIAL BRANCH TRANSECTION UNDER DIRECT VISUALIZATION Implants: NONE Anesthesia: KERI Surgeon: Dangelo Beebe Bsw #1: Go Rogers (WAS PRESENT AND ASSISTED WITH ALL ASPECTS OF THE CASE FROM POSITION TO DRESSING PLACEMENT) Estimated Blood Loss (ml): 2 IV fluids (ml): 700 Urine output (ml): 0 Pathology: none sent Condition: stable Disposition: PACU Indications for Procedure: Mis Yates is a 49 year old female presenting for evaluation of sudden onset of SEVERE LOW BACK PAIN, FACET PAIN, PAIN WITH ROTATION. It was my pleasure to have seen and examined Ms. Yates. In our visit today we have had a chance to go over subjective complaints, physical examination findings and treatments, including the natural course history without intervention and various interventional options. The imaging demonstrates FACET ARTHROPATHY SEVERE WITH DDD AND FACET OVERGROWTH . On physical exam, Ms. Yates demonstrates PAIN OVER THE L5-S1 FACETS TO PALPATION B/L. PAIN WITH BACK BENDING AND TWISTING, SOME RELIEF WITH FLEXION. DIFFICULTY WITH ADLS SECONDARY TO PAIN. I explained to the patient that as her condition progresses it could cause CONTINUED AND PROGRESSIVE PAIN . At this time, based on the patients imaging and physical exam, I recommend surgery in the form or a: L5-S1 BILATERAL MEDIAL BRANCH TRANSECTION WITH RHIZOTOMY FOR FACETOGENIC PAIN . I discussed the risk and benefits of this procedure at length with Ms. Yates. The patient agreed to consider pursuing the procedure mentioned above. Plan: 1. L5-S1 BILATERAL MEDIAL BRANCH TRANSECTION WITH RHIZOTOMY FOR FACETOGENIC PAIN Description of Procedure: L5-S1 BILATERAL ENDO MBT The patient was seen and examined in the preoperative area. All preoperative protocols were followed. Informed consent was obtained, risks and benefits of the procedure were discussed at length. Risks including bleeding infection damage to the surrounding tissue and risk of reoperation were discussed with the patient. Risk of anesthesia up to and including was discussed with the patient. These are outlined in the risk review. They were willing to accept these risks and all of the risks of surgery. The patient was given a weight- based dose of antibiotics in the form of 2 g Ancef. The patient was seen and evaluated by the anesthesia team who deemed them fit for surgery. The site was marked, the patient was willing to proceed with the procedure. The patient was transferred to the operative suite by the Department of anesthesia. They were then drifted off to sleep by the department anesthesia and GETA was performed. The patient tolerated this well. Once confirmation of lines and ventilation the patient was transferred to a [prone Rey table very carefully]. All bony prominences including wrists, elbows, axilla, chest, hips, and thighs, and feet were padded very well. Special attention was paid to the genitalia and these were padded accordingly. SCDs were placed on bilateral lower extremities and were connected. Arms were well padded and placed [on arm boards up and out in the 90/90 position]. Once in position, again we confirmed good ventilation capabilities and that lines were running appropriately. The patient's lumbar spine was then exposed. 1010s were placed outlining the incision sites. Standard alcohol was used to clean the incision sites and allowed to dry. C-arm was used to biomark the patient and confirm level for incisions which were marked with a skin marker. Operative briefing was performed with all teams and everyone in agreement to proceed. The patient was then prepped and draped in a normal sterile fashion. Timeout was then performed and all parties were in agreement with the procedure to be performed. Starting with the left side, an 18-gauge needle was used to localize the L5-S1 facet joint. Lidocaine 2% with epi and Marcaine .25% w/o placed in this area. Skin brunilda was then made and a trocar for the scope was entered. X-ray used to localize this area. Once this was confirmed an accessory portal was made and a trocar placed through here. We then used the ArthroCare wand to skeletonize the transverse process on the left-hand side at L5-S1 as well as sacral ala. This was then followed out medially until the L5-S1 facet joint medially and mamillary process was identified as well as the ligament in this area. Nerve was identified at L5-S1 level and visualized directly when it was transected. ArthroCare wand was then used to burn the area to retract the nerve ends. The scope was lavaged with pictures taken in this area and inspected there was no damage or issues and no bleeding. We then proceeded to the right side. An 18-gauge needle was used to localize the right L5-S1 facet joint. Lidocaine 2% with epi and Marcaine .25% w/o placed in this area. Skin brunilda was made and a trocar for the scope was entered. X-ray confirmed localization. An accessory portal was made and trocar placed. The ArthroCare wand was used to skeletonize the transverse process on the right-hand side at L5-S1 and sacral ala. This was followed medially until the L5-S1 facet joint medially and mamillary process was identified along with the ligament. The nerve was identified at L5-S1 level, visualized directly, and transected. ArthroCare wand was used to burn the area to retract the nerve ends. The scope was lavaged, pictures taken, and the area was inspected showing no damage or bleeding. The scope was removed from both sides. The wounds were then cleaned and simple stitches were placed in the skin bilaterally and they were glued. These were the n dressed sterilely with Band-Aids. The patient was transferred back to their hospital bed atraumatically. Patient was then awakened and extubated by the department of anesthesia having tolerated the procedure very well with no complications. They were transferred to the postoperative care unit in stable condition.
[2024-03-23 09:11] VITALS: TEMP 96.9
[2024-03-23 09:23] VITALS: RESP 16
--- NOTE | 2024-03-23 10:09 | FL ---
EXAMINATION TYPE: FL guidance operating room DATE OF EXAM: 03/23/2024 HISTORY: Fluoroscopy time Total dose area product (DAP) in uGy*m?, mGy*cm? (or similar): 24.861 IMPRESSION: 1. Fluoroscopy time. [facility], , 03/23/2024 10:06 AM
[2024-03-23] MEDS: HYDROcodone/APAP 10-325MG 1 EACH TAB PO ONE (10:11)
[2024-03-23 10:44] VITALS: BP 144/84; PULSE 100
== END 2024-03-23 10:55 | disposition home or self-care (01) ==
LOC: OR 06:03
PROVIDERS: ATTEND Orthopaedic Surgery
DX: M47.27 Other spondylosis with radiculopathy, lumbosacral region (principal); M51.17 Intervertebral disc disorders with radiculopathy, lumbosacral region; M48.07 Spinal stenosis, lumbosacral region; I10 Essential (primary) hypertension; E11.9 Type 2 diabetes mellitus without complications; K21.9 Gastro-esophageal reflux disease without esophagitis; F41.9 Anxiety disorder, unspecified; F41.0 Panic disorder [episodic paroxysmal anxiety]; F32.A Depression, unspecified; E66.9 Obesity, unspecified; Z68.42 Body mass index [BMI] 45.0-49.9, adult; Z79.85 Long-term (current) use of injectable non-insulin antidiabetic drugs; Z79.899 Other long term (current) drug therapy; Z88.5 Allergy status to narcotic agent; Z88.0 Allergy status to penicillin
CPT/HCPCS: 64772; 72100; J2250; J0330; J1100; J2710; J0690; J2405; J2003; J3010; J2704; J0665; J1596

== ENCOUNTER → 2024-04-15 | Outpatient (CLI) | payer MEDICARE | END | disposition home or self-care (01) | LOC: RADMAMWWP 09:23 | PROVIDERS: ATTEND Family Medicine | DX: Z53.9 Procedure and treatment not carried out, unspecified reason (principal) ==

== ENCOUNTER → 2024-07-13 | Outpatient (CLI) | payer MEDICARE ==
[2024-07-13 11:04] VITALS: BP 147/84; PULSE 89; RESP 16; TEMP 97.8
--- NOTE | 2024-07-13 15:23 | P.PAINPG ---
PQRS Measure Charge Sheet Comment: A 48 yr old female w at side with a history of severe and chronic LBP secondary to radiculopathy, spondylosis and facet arthropathy without myelopathy presents today for evaluation s/p BL MBB L5-S1 #2. Pt states she experienced 100% pain relief x 2 days s/p procedure. Pain level is provoked at 9 /10 in intensity, constant, localized in the lower lumbar spine, sharp in character without shooting pain. Pain is provoked by standing, walking for periods > 20 minutes. Pain is alleviated with physician guided stretches daily since Mid Oct 2023, medications, heat, ice, PT 3 years ago which provoked pain, sitting, repositioning and rest. Pt was referred in 2022 for an SCS trial. Interventional pain procedures completed include L TFESI L5-S1x1, JOSSELYN L4-5 x1, BL L3-L5 x1, BL MBB L5-S1 x2, BL L5-S1 Transection (03/[address]be) Patient is currently on Tyl, Tramadol, Naproxen Patient denies any side effects of the medication(s), denies excessive drowsiness or sleepiness, denies suicidal ideation and reports that the current pain medication is helping to control the pain and improve activities of daily living. Patient denies any motor or sensory deficits. Patient denies any fever or night sweats, denies any change in the bowel movements or urination. Physical Examination: -Constitutional: Cooperative. Not in acute distress . - Neurologic: Cranial nerve II to XII intact. No focal neurological deficits. - Psychatric: Alert & oriented x 3. Matching mood & appropriate affect. Judgmen t and insight intact. - Musculoskeletal: Cervical spine: Muscle bulk/ tone/ strength in the bilateral upper extremities normal Vertebral body tenderness to palpation over Spurling test positive Distraction test positive Facet loading test positive TTP Thoracic spine Muscle bulk / tone/ strength in the bilateral paraspinal muscles normal Vertebral body tender to palpation over Facet loading test positive TTP Lumbar spine: Motor bulk/ tone/ strength lower extremities , thigh and legs : 5/5 Deep tendon reflexes : Normal Knee Jerk. Normal Ankle Jerk . Vertebral body tenderness to palpation over L4 Lumbar Facet Loading Test positive over BL L4-L5, L5-S1 facets Poor 2 pt discrimination over BL L4-S1 paraspinal muscles Straight Leg Raise: positive at 30 degrees right side/ left side Gaenslen's Test positive Sacral spine : Severe tenderness over the Sacroiliac joint: right side / left side Range of motion: Flexion of the lumbar spine <60 degrees Range of motion: Extension of the lumbar spine <20 degrees Gaenslen's Test positive right side / left side Alka test: positive right side / left side Thigh Thrust Test positive right side / left side Sacral Thrust Test positive right side / left side Imaging: MRI non contrast lumbar spine from 07/02/22 reviewed Assessment and plan: Chronic LBP secondary to L5-S1 Microdiscectomy Recommendation of BL RFA L4-L5, L5-S1. Risks, benefits of procedure discussed and pt verbalized understanding. Admits to anticoagulant use or medical history of diabetes. Protocol for discontinuation/ continuation of medications kristin procedure discussed. Minimal anesthesia including Fentanyl and Versed if clinically indicated. All questions answered. I have spent less than 30 minutes on patient care today. Dr Phelps was available by phone for the evaluation of this patient. The time was used to review the medical records including relevant urine studies and Prescription history (MAPs), review of the available imaging, evaluation and examination of the patient, coordination of care with the medical staff and if applicable referring physicians, as well as creation of the medical record PQRS Narrative: Smoking Status Never smoker Hx Alcohol Use (MH) No Home Medications: Ambulatory Orders Omeprazole 40 mg PO DAILY 10/17/21 Pregabalin [Lyrica] 150 mg PO BID 10/17/21 busPIRone HCL [Buspar] 30 mg PO BID 10/17/21 hydrOXYzine HCL [Hydroxyzine HCl] 50 mg PO BID PRN 10/17/21 Albuterol Inhaler [Ventolin Hfa Inhaler] 1 - 2 puff INHALATION Q6H PRN 04/10/23 cloNIDine HCL [Clonidine HCl] 0.3 mg PO HS 10/11/23 Tirzepatide [Mounjaro] 2.5 mg SQ FR 01/02/24 Calcium Carbonate/Vitamin D3 [Calcium 500-Vit D3 15 Mcg (600 Iu)] 1 tab PO DAILY 03/19/24 HYDROcodone/APAP 10-325MG [[place] 10-325] 1 tab PO Q6HR PRN #24 tab 03/23/24 Controlled Substance Measures - Controlled Substance Measures Is patient prescribed a controlled substance at discharge?: No
== END ==
LOC: PNWHC3 10:36
PROVIDERS: ATTEND Specialist
DX: M47.816 Spondylosis without myelopathy or radiculopathy, lumbar region (principal); M51.26 Other intervertebral disc displacement, lumbar region; G89.29 Other chronic pain; Z88.6 Allergy status to analgesic agent; Z88.0 Allergy status to penicillin
CPT/HCPCS: 99211

== ENCOUNTER 2024-07-24 12:05 | Day surgery (SDC) | payer MEDICARE ==
[2024-07-21 16:12] VITALS: BMI 48.2
[2024-07-24 12:29] LABS: Glucose,Whole Blood 108 mg/dL (70-110)
[2024-07-24] MEDS: IV FLUID CONTINUATION 1,000 ML IV ONE ×3 (12:30→14:37)
[2024-07-24] MEDS: LACTATED RINGERS 1,000 ML IV SCH (12:30)
[2024-07-24 12:33] VITALS: RESP 16; TEMP 97
[2024-07-24] MEDS ORDERED: fentaNYL (PF) 50 MCG/ML 2 ML AMP ONE (13:19)
[2024-07-24] MEDS ORDERED: MIDAZOLAM 2 MG/2 ML VIAL ONE (13:19)
[2024-07-24] MEDS ORDERED: ROPIVACAINE 5MG/ML 20ML VIAL ONE (13:19)
--- NOTE | 2024-07-24 13:56 | P.PCN ---
Description of Procedure: Preprocedure diagnosis. 1. Lumbar spondylosis with facet joint arthropathy without myelopathy. 2. Lumbar degenerative disc disease. Procedure diagnosis. 1. Lumbar spondylosis with facet joint arthropathy without myelopathy. Space 2. Lumbar degenerative disc disease. Procedure.Bilateral radiofrequency thermocoagulation L4 and L5 medial branch, with fluoroscopic guidance (fluoroscopy images are available in the radiology department) (to Denervate the facet joint at bilateral L5-S1 levels) Anesthesia. Moderate sedation with intravenous Versed 2 mg and fentanyl 100 g and local infiltration with Lidocaine. Continuous pulse OX,BP,EKG and verbal communication was maintained with patient. Time. [id number] . Stop 1345 . EBL minimal. Procedure indication. The patient with low back pain secondary to lumbar facet arthropathy who he had more than 50% relief of her pain with previous diagnostic lumbar medial branch block with local anesthetics.The patient was seen and identified in the preoperative area. Risks: Benefits, complications, including but not limited to risk of infection, bleeding, ALLERGIC reaction to the medications and no complete pain relief and alternatives were discussed with the patient, the patient admitted to proceed with the procedure and signed the consent. Procedure description/technique. Patient was taken to the OR and timeout was completed. The patient was placed in prone position on the procedure table. The lumbar area was prepped and draped in the usual sterile fashion. After injecting 5 ml of 1% Lidocaine subcutaneously,using AP and then oblique, lateral view of fluoroscopy, 18-gauge 100 mm radiofrequency cannula with a 10 mm active tip was advanced and guided by fluoroscopy at the junction of supirior articular process with RIGHT ala of the sacrum, transverse process of L5. Each site then underwent positive sensory testing with 50 Hz and 0-1 V and negative motor testing at 2.5 Hz and 0-3 V with local stimulation but no radicular symptoms down the leg. Thereafter each sites underwent radiofrequency thermocoagulation at 80C for 90 seconds after injecting 1 mL of preservative- free 0.5% ropivacaine. Repeat radiofrequency ablation was done at each points after rotating the needle 180 with same setting. This same procedure was repeated twice on the LEFT side at the junction of superior articular process with ala of sacrum,transverse process of L5 with the same settings after positive sensory,negative motor stimulation and infiltration of 1.0 ml 5% Ropivacaine at each site . RF needles were taken out. At the end of the procedure the skin was cleansed and Band-Aids were applied. Disposition patient tolerated the procedure well. No complication. She was placed in supine position and transferred to the recovery area in stable condition for observation and was discharged home from recovery room after meeting discharge criteria. Discharge instructions given to the patient by the staff. The patient were examined prior to discharge the patient will schedule a follow-up in the clinic in 2-4 weeks.
--- NOTE | 2024-07-24 13:58 | FL ---
Fluoroscopy INDICATION: Pain FINDINGS: Fluoroscopy time: 45.4 seconds. Total dose area product (DAP) in uGy*m?, mGy*cm? (or similar): 0.11647 Images obtained: 4. Images document needle was directed towards the lower lumbar spine IMPRESSION: 1. Documentation of fluoroscopy. [facility], Workstation: [facility], 07/24/2024 1:56 PM
[2024-07-24 14:26] VITALS: BP 131/84; PULSE 79
== END 2024-07-24 14:50 | disposition home or self-care (01) ==
LOC: ORPAIN 12:05
PROVIDERS: ATTEND Pain Medicine Interventional Pain Medicine
DX: M47.816 Spondylosis without myelopathy or radiculopathy, lumbar region (principal); M51.369 Other intervertebral disc degeneration, lumbar region without mention of lumbar back pain or lower extremity pain
CPT/HCPCS: 64635; J2250; J3010; J2795

== ENCOUNTER 2024-09-28 05:56 | Day surgery (SDC) | payer MEDICARE ==
[~2024-09-28 05:56] MED LIST changes: -LIDOCAINE 1% (10MG/ML) FOR IV START INTRADERMA PRN
[2024-09-28] MEDS: IV FLUID CONTINUATION 1,000 ML IV ONE (06:21)
[2024-09-28] MEDS ORDERED: LIDOCAINE 1% (10MG/ML) FOR IV START INTRADERMA PRN (06:37)
[2024-09-28] MEDS ORDERED: HYDROmorphone 0.5 MG/0.5 ML SYRINGE IVP PRN (06:37)
--- NOTE | 2024-09-28 06:49 | P.HPOR ---
History of Present Illness H&P Date: 08/28/24 .D:Date: 08/28/24 : 10:48am .T:Title: LUMBAR FOLLOW UP CLINICAL SUMMARY: Mis Yates, previously treated with MBT and RFA procedures for chronic lower back pain, presents for follow-up evaluation. Physical examination reveals significant limitation in lumbar range of motion with positive facet loading test, particularly on the right side. Imaging demonstrates substantial degeneration at the lowest spinal level, correlating with deep, centralized lower back pain and right-sided sensitivity. Conservative management, including RFA and NSAIDs (currently Naproxen), has provided insufficient relief. Patient has achieved notable weight loss of 15 pounds but continues to experience significant pain affecting quality of life. Treatment plan includes provision of new LSO brace, modified pain management regimen combining Tylenol 1500mg with Naproxen 500mg BID (with additional PRN dose), and scheduling of repeat MBT procedure. Patient expresses preference to avoid fusion surgery due to family obligations. Follow-up scheduled with Audrey for MBT procedure coordination. Prognosis remains guarded due to underlying degenerative changes, though previous positive response to MBT suggests potential for symptomatic improv ement. SURGICAL PLAN: L4-S1 MEDIAL BRANCH TRANSECTION History/Background Mis Yates is a patient who has undergone previous treatments for back pain. The patient had an MBT (Minimally Invasive Lumbar Decompression) procedure performed by me in the past, followed by an RFA (Radiofrequency Ablation) procedure performed by another provider approximately two weeks ago. The patient reports that the RFA was not effective in managing their pain. Mis has a history of using a back brace, which provided some relief. The patient also mentions a recent incident where they "popped something" in their back and received a steroid pack from another provider (Saba) last month, which seemed to help. Mis is currently taking Naproxen for pain management and has previously tried Celebrex without success. Clinical Observations Upon examination, Mis Yates reports pain centrally located in the lower back, with increased sensitivity on the right side. The pain appears to be deeper rather than muscular. When palpated, the patient experiences discomfort, particularly on the right side. X-rays have previously shown significant d egeneration at the bottom level of the spine. The patient demonstrates notable discomfort during range of motion testing. Forward flexion is limited to 45 degrees with increased pain. Extension is li mited to 15 degrees with significant pain reported. Lateral bending to the right elicits more pain than left-sided bending. Rotation is moderately restricted bilaterally. Facet loading test is positive, particularly on the right side, reproducing the patient's typical pain symptoms. Straight leg raise test is negative bilaterally. Palpation reveals significant tenderness over the lower lumbar region, most pronounced at L4-L5 and L5-S1 levels, with greater sensitivity on the right side. Para-spinal muscle tension is noted bilaterally, more pronounced on the right. Neurological examination reveals intact sensation, strength 5/5 in all major muscle groups of the lower extremities, and symmetric deep tendon reflexes. No signs of radiculopathy are present. The patient's gait and posture have been observed during clinic visits, and there are no apparent abnormalities noted in their walking or standing position. Mis reports having lost about 15 lbs recently, which is visually noticeable. The patient expresses a desire to avoid fusion surgery if possible, citing concerns about the recovery process and its impact on family responsibilities. Mis also mentions caring for children, which factors into treatment decisions. Overall, Mis Yates appears to be managing daily activities but continues to experience significant back pain that impacts quality of life. The patient is actively engaged in their treatment plan and open to less invasive options before considering more extensive surgical interventions. ASSESSMENT: 1. Primary: Chronic Low Back Pain (ICD-10: M54.5) - Characterized by persistent lower lumbar pain - Significant right-sided sensitivity - Deep, non-muscular pain quality 2. Lumbar Facet Joint Syndrome (ICD-10: M54.56) - Positive facet loading test - Pain exacerbated with extension - Right-sided predominance 3. Lumbar Degenerative Disc Disease (ICD-10: M51.36) - Radiographic evidence of degeneration at lowest spinal level - Limited range of motion - Pain with flexion and extension 4. Lumbar Spondylosis (ICD-10: M47.816) - Consistent with imaging findings - Chronic progressive condition - Contributing to mechanical back pain 5. Chronic Pain Syndrome (ICD-10: G89.4) - Multiple failed conservative treatments - Ongoing impact on quality of life - Requiring multimodal pain management Plan/Recommendations 1. Provide a new LSO (Lumbosacral Orthosis) back brace for the patient. 2. Recommend a pain management regimen: - Morninmg Tylenol (three 500mg pills) + 500mg Naproxen - Noon (if needed): 250mg Naproxen (half of a 500mg pill) - Evening: Same as morning (1500mg Tylenol + 500mg Naproxen) 3. Schedule a repeat MBT procedure to attempt further pain relief before considering fusion surgery. 4. Encourage continued weight loss efforts, emphasizing the importance of protein intake to prevent muscle and bone wasting. 5. Advise the patient that weight loss may temporarily worsen back pain due to changes in body mechanics before improvement occurs. 6. Follow up with Audrey (presumably a staff member) to schedule the MBT procedure and discuss further details. Medical Necessity Note: Patient Mis Yates demonstrates persistent lower back pain refractory to conservative treatments including RFA, NSAIDs, and steroid therapy. Previous X- rays document significant degeneration at the lowest spinal level, correlating with reported deep, centralized lower back pain and right-sided sensitivity. While maintaining normal gait and posture, the patient experiences substantial pain affecting daily activities and quality of life. Previous MBT procedure provided temporary relief, indicating potential benefit from repeat intervention. The patient has demonstrated commitment to conservative management through weight loss efforts and medication compliance, yet continues to experience significant symptoms warranting further intervention. Surgical Rationale Note: Given the documented spinal degeneration and failure of multiple conservative treatments including RFA, medication management, and bracing, surgical intervention via MBT is indicated. The patient previously responded positively to MBT, suggesting likelihood of successful outcomes with repeat procedure. This minimally invasive approach aligns with patient preferences to avoid fusion surgery while addressing persistent symptoms. The procedure is particularly appropriate given the patient's demonstrated compliance with conservative measures, recent weight loss efforts, and the need to maintain functional capacity for childcare responsibilities. MBT offers a balanced approach between conservative management and more invasive surgical options, with potential to provide significant pain relief while maintaining spinal stability. Risks and Benefits Statement: The proposed Minimally Invasive Lumbar Decompression (MBT) procedure offers potential benefits including reduced lower back pain, improved mobility, and enhanced quality of life without requiring extensive fusion surgery. Benefits are supported by the patient's previous positive response to MBT treatment and could enable continued childcare responsibilities with less discomfort. However, patients should be aware of potential risks including, but not limited to: temporary increase in pain at the procedure site, infection risk (though minimal with proper sterile technique), possible nerve irritation, bleeding, and the possibility that pain relief may be temporary or incomplete. While serious complications are rare with MBT, there exists a small risk of dural tear, spinal fluid leak, or nerve injury. The minimally invasive nature of the procedure typically allows for faster recovery compared to traditional surgery, though individual healing times may vary. Given the patient's documented spinal degeneration, previous successful response to MBT, and failure of conservative treatments including RFA and medication management, the potential benefits of the procedure appear to outweigh the risks for this specific case. # SIGNED BY Dangelo Beebe ([facility])08/28/2024 11:26AM # REVISED BY Dangelo Beebe ([facility])09/09/2024 02:16PM Past Medical History Past Medical History: Diabetes Mellitus, GERD/Reflux, Hyperlipidemia, Hypertension, Osteoarthritis (OA) Additional Past Medical History / Comment(s): VARICOSE VEINS History of Any Multi-Drug Resistant Organisms: None Reported Past Surgical History: Back Surgery, Hysterectomy, Joint Replacement, Orthopedic Surgery, Tubal Ligation Additional Past Surgical History / Comment(s): TOTAL RIGHT KNEE, LEFT ANKLE AND TENDON REPAIR, RIGHT ROTATOR CUFF X2, TOTAL REVISION LEFT KNEE, LT ROTATOR CUFF REPAIR, PAIN CLINIC PROCEDURES. COLONOSCOPY Past Anesthesia/Blood Transfusion Reactions: Motion Sickness, Postoperative Nausea & Vomiting (PONV) Smoking Status: Never smoker - Past Family History Mother Family Medical History: No Reported History Father Family Medical History: Diabetes Mellitus, Hypertension Medications and Allergies Home Medications Medication Instructions Recorded Confirmed Type Omeprazole 40 mg PO DAILY 10/17/21 09/28/24 History Pregabalin [Lyrica] 150 mg PO BID 10/17/21 09/28/24 History busPIRone HCL [Buspar] 30 mg PO BID 10/17/21 09/28/24 History hydrOXYzine HCL [Hydroxyzine HCl] 50 mg PO BID PRN 10/17/21 09/28/24 History cloNIDine HCL [Clonidine HCl] 0.3 mg PO HS 10/11/23 09/28/24 History Tirzepatide [Mounjaro] 2.5 mg SQ FR 01/02/24 09/28/24 History Calcium Carbonate/Vitamin D3 1 tab PO DAILY 03/19/24 09/28/24 History [Calcium 500-Vit D3 15 Mcg (600 Iu)] HYDROcodone/APAP 10-325MG [Jaroso 1 tab PO Q6HR PRN #24 tab 03/23/24 09/28/24 Rx 10-325] Cariprazine HCl [Vraylar] 3 mg PO DAILY 07/21/24 09/28/24 History Rosuvastatin [Crestor] 10 mg PO DAILY 09/21/24 09/28/24 History Allergies Allergy/AdvReac Type Severity Reaction Status Date / Time ketorolac tromethamine Allergy Nausea & Verified 09/28/24 06:21 [From Toradol] Vomiting Penicillins Allergy Swelling Verified 09/28/24 06:21 Physical Examination Osteopathic Statement: *. No significant issues noted on an osteopathic structural exam other than those noted in the History and Physical/Consult.
[2024-09-28 06:58] LABS: Glucose,Whole Blood 151 mg/dL (70-110)
[2024-09-28] MEDS: LACTATED RINGERS 1,000 ML IV SCH (07:06)
[2024-09-28] MEDS: GABAPENTIN 300 MG CAP PO PRN (07:06)
[2024-09-28] MEDS: ACETAMINOPHEN TAB 500 MG TAB PO PRN (07:06)
[2024-09-28] MEDS: ONDANSETRON 4 MG/2 ML VIAL IVP PRN (07:07)
[2024-09-28] MEDS ORDERED: NEOSTIGMINE 1 MG/ML 10 ML VIAL ONE (07:21)
[2024-09-28] MEDS ORDERED: GLYCOPYRROLATE 0.2 MG/ML 2 ML VIAL ONE (07:21)
[2024-09-28] MEDS ORDERED: SUGAMMADEX SODIUM 100 MG/ML SYR IV ONE (07:21)
[2024-09-28] MEDS ORDERED: fentaNYL (PF) 50 MCG/ML 2 ML AMP ONE (07:21)
[2024-09-28] MEDS ORDERED: SUCCINYLCHOLINE CHLORIDE 200 MG/10 ML VIAL IV ONE (07:21)
[2024-09-28] MEDS ORDERED: ROCURONIUM 10 MG/ML (5 ML VIAL) IV ONE (07:21)
[2024-09-28] MEDS ORDERED: PROPOFOL 10 MG/ML 20 ML VIAL IV ONE (07:21)
[2024-09-28] MEDS ORDERED: LIDOCAINE 1% INJ 10MG/ML (20 ML MDV) ONE (07:21)
[2024-09-28] MEDS ORDERED: MIDAZOLAM 2 MG/2 ML VIAL ONE (07:21)
[2024-09-28] MEDS ORDERED: TRANEXAMIC 1,000 MG/100ML-NACL PREMIX BAG ONE (07:21)
[2024-09-28] MEDS: ceFAZolin 3 GM in SODIUM CHLORIDE 0.9% 100 ML IVPB PRN (07:34)
[2024-09-28] MEDS: BUPIVACAINE (PF) 0.5% 30 ML VIAL SQ ONE (08:10)
[2024-09-28] MEDS: LIDOCAINE 2%-EPI 1:100,000 20 ML VIAL SQ ONE (08:10)
--- NOTE | 2024-09-28 08:22 | P.OP ---
Date of Procedure: 09/28/24 Preoperative Diagnosis: 1. L4-5 BILATERAL FACET ARTHROPATHY R>L 2. LOW BACK PAIN W/O RADICULOPATHY 3. L4-S1 SPONDYLOSIS Postoperative Diagnosis: 1. L4-5 BILATERAL FACET ARTHROPATHY R>L 2. LOW BACK PAIN W/O RADICULOPATHY 3. L4-S1 SPONDYLOSIS Procedure(s) Performed: 1. L4-5 BILATERAL MEDIAL BRANCH TRANSECTION UNDER DIRECT VISUALIZATION ENDO Implants: NA Anesthesia: GETA Surgeon: Dangelo Beebe Paint Line Supervisor #1: Go Rogers (WAS PRESENT AND ASSISTED WITH THE CASE) Estimated Blood Loss (ml): 2 IV fluids (ml): 500 Urine output (ml): 0 Pathology: none sent Condition: stable Disposition: PACU Indications for Procedure: Mis Yates, previously treated with MBT and RFA procedures for chronic lower back pain, presents for follow-up evaluation. Physical examination reveals significant limitation in lumbar range of motion with positive facet loading test, particularly on the right side. Imaging demonstrates substantial degeneration at the lowest spinal level, correlating with deep, centralized lower back pain and right-sided sensitivity. Conservative management, including RFA and NSAIDs (currently Naproxen), has provided insufficient relief. Patient has achieved notable weight loss of 15 pounds but continues to experience significant pain affecting quality of life. Treatment plan includes provision of new LSO brace, modified pain management regimen combining Tylenol 1500mg with Naproxen 500mg BID (with additional PRN dose), and scheduling of repeat MBT procedure. Patient expresses preference to avoid fusion surgery due to family obligations. Follow-up scheduled with Audrey for MBT procedure coordination. Prognosis remains guarded due to underlying degenerative changes, though previous positive response to MBT suggests potential for symptomatic improv ement. SURGICAL PLAN: L4-S1 MEDIAL BRANCH TRANSECTION Description of Procedure: L4-5 BILATERAL MEDIAL BRANCH TRANSECTION The patient was seen and examined in the preoperative area. All preoperative protocols were followed. Informed consent was obtained, risks and benefits of the procedure were discussed at length. Risks including bleeding infection damage to the surrounding tissue and risk of reoperation were discussed with the patient. Risk of anesthesia up to and including was discussed with the patient. These are outlined in the risk review. They were willing to accept these risks and all of the risks of surgery. The patient was given a weight- based dose of antibiotics in the form of 2 g Ancef. The patient was seen and evaluated by the anesthesia team who deemed them fit for surgery. The site was marked, the patient was willing to proceed with the procedure. The patient was transferred to the operative suite by the Department of anesthesia. They were then drifted off to sleep by the department anesthesia and GETA was performed. The patient tolerated this well. Once confirmation of lines and ventilation the patient was transferred to a [prone Rey table very carefully]. All bony prominences including wrists, elbows, axilla, chest, hips, and thighs, and feet were padded very well. Special attention was paid to the genitalia and these were padded accordingly. SCDs were placed on bilateral lower extremities and were connected. Arms were well padded and placed [on arm boards up and out in the 90/90 position]. Once in position, again we confirmed good ventilation capabilities and that lines were running appropriately. The patient's lumbar spine was then exposed. 1010s were placed outlining the incision site. Standard alcohol was used to clean the incision site and allowed to dry. C-arm was used to biomark the patient and confirm level for incision which was marked with a skin marker. Operative briefing was performed with all teams and everyone in agreement to proceed. The patient was then prepped and draped in a normal sterile fashion. Timeout was then performed and all parties were in agreement with the procedure to be performed. 18-gauge needle and was then used to localize the left side L4-5 facet joint. Lidocaine 2% with epi and Marcaine .25% w/o placed in this area. Skin brunilda was then made and a trocar for the scope was entered. X-ray used to localize this area. Once this was confirmed an accessory portal was made and a trocar placed through here. We then used the ArthroCare wand to skeletonize the transverse process on the left-hand side at L4-5 as well as sacral ala. This was then followed out medially until the L4-5 facet joint medially and mamillary process was identified as well as the ligament in this area. Nerve was identified at L4-5 level and visualized directly when it was transected. ArthroCare wand was then used to burn the area to retract the nerve ends. The scope was lavaged with pictures taken in this area and inspected there was no damage or issues and no bleeding. The scope was removed. This was then repeated on the contralateral side for L4-5 MBT on the right side as well. Fluoroscopic localization was done, followed by local anesthetic. Skin nicks made, scope introduced and MBT done as described above. The scope was lavaged with pictures taken in this area and inspected there was no damage or issues and no bleeding. The scope was removed. The wounds were then cleaned and simple stitches were placed in the skin and they were glued. These were then dressed sterilely with Band-Aids. The patient was transferred back to their hospital bed atraumatically. Patient was then awakened and extubated by the department of anesthesia having tolerated the procedure very well with no complications. They were transferred to the postoperative care unit in stable condition.
--- NOTE | 2024-09-28 08:55 | XR ---
Fluoroscopy History: Medial branch transection 28 seconds of fluoroscopic time and 6 films are submited for medial branch transection. 28 SEC FLUORO, DAP 13.116 Gycm2 [facility], , 09/28/2024 8:53 AM
[2024-09-28 08:56] VITALS: TEMP 96.8
[2024-09-28 09:10] LABS: Glucose,Whole Blood 143 mg/dL (70-110)
[2024-09-28 09:24] VITALS: RESP 18
[2024-09-28] MEDS: oxyCODONE-APAP 5-325MG 1 EACH TAB PO STA (09:47)
[2024-09-28 10:21] VITALS: BP 143/82; PULSE 78
--- NOTE | 2024-09-28 11:29 | FL ---
EXAMINATION TYPE: FL guidance operating room Intraoperative/procedural fluoroscopic services were pro vided. CLINICAL INDICATION:Female, 49 years old with history of HARDWARE PLACEMENT; , [facility] FINDINGS: Fluoroscopy History: Medial branch transection 28 seconds of fluoroscopic time and 6 films are submitted for medial branch transection. 28 SEC FLUORO, DAP 13.116 Gycm2 Please see the operative/procedural note for further details. [facility], , 09/28/2024 11:27 AM
== END 2024-09-28 10:41 | disposition home or self-care (01) ==
LOC: OR 05:56
PROVIDERS: ATTEND Orthopaedic Surgery
DX: M47.816 Spondylosis without myelopathy or radiculopathy, lumbar region (principal); I10 Essential (primary) hypertension; E11.9 Type 2 diabetes mellitus without complications; E78.5 Hyperlipidemia, unspecified; F41.9 Anxiety disorder, unspecified; F32.A Depression, unspecified; Z91.89 Other specified personal risk factors, not elsewhere classified; Z79.899 Other long term (current) drug therapy; Z88.5 Allergy status to narcotic agent; Z88.0 Allergy status to penicillin
CPT/HCPCS: 64772; 72100; J2250; J0330; J2710; J0690; J2405; J2003; J3010; J2704; J0665; J1596